=== PATIENT | female | born 1985 | race Caucasian/White ===

== ENCOUNTER 2018-04-25 16:29 | Emergency (ER) | payer OTHER ==
[~2018-04-25] VITALS: Ht 170.1 cm; Wt 69.4 kg
[~2018-04-25 16:29] MED LIST: ACCUPRIL20 MG PO; AMOXICILLIN500 MG PO; AMOXIL400 MG/5 M PO; ARMOUR THYROID60 MG PO; ATARAX25 MG PO; ATIVAN1 MG PO; AUGMENTIN 875 M1 TAB PO; Amphetamine Sal20 MG PO; BACTRIM DS 8001 TA1 PO; CATAFLAM50 MG PO; CIPROFLOXACIN500 MG PO; CLEOCIN150 MG PO; CLINDAMYCIN HC300 MG PO; DIFLUCAN150 MG PO; EFFEXOR XR75 M1 PO; FLAGYL500 MG PO; FLEXERIL5 MG PO; HYDROCHLOROTHIAZIDE PO; HYDROCODONE BIT1 T11 PO; IMITREX PO; KENALOG0.1% TP; LABETALOL100 MG PO; LISINOPRIL/HCTZ1 TA4 PO; LISINOPRIL/HCTZ1 TA5 PO; LISINOPRIL10 MG PO; LOPRESSOR50 MG PO; MACROBID100 M1 PO; MIXED AMPHETAMI20 M1 PO; MOTRIN800 MG PO; MULTIPLE VITAMI1 CAP PO; NORVASC10 MG PO; PEN-VEE K500 MG PO; PEN-VK500 MG PO; PENICILLIN VK500 MG PO; PIROXICAN10 MG PO; PREDNICOT20 MG PO; PYRIDIUM100 MG PO; PYRIDIUM200 MG PO; ROBAXIN750 MG PO; TESSALON PERLE200 MG PO; TRAMADOL HCL50 MG PO; TRIMOX500 MG PO; TYLENOL W/CODEI1 TA2 PO; ULTRAM50 MG PO; VALTREX500 MG PO; VICODIN 5/500 505 MG PO; VISTARIL50 MG PO; Vicodin 5/500 505 MG PO; ZANTAC150 MG PO; ZESTRIL,PRINIVI20 MG PO; ZITHROMAX Z PA250 MG PO; ZOFRAN ODT4 MG SL; ZOFRAN4 MG PO; Zestril,Prinivil5 MG PO; Zofran4 MG PO
[2018-04-25 16:32] VITALS: BP 138/92
[2018-04-25] MEDS ORDERED: EFFEXOR XR75 M1 PO ×2 (17:37→17:59)
[2018-04-25 18:10] LABS: BASO % 0.3 % (0.0-1.0); EOS # 0.1 10*3/uL (0.0-0.4); EOS % 1.6 % (1.0-4.0); HEMATOCRIT 38.7 % (37.0-47.0); HEMOGLOBIN 13.4 g/dl (12.0-16.0); LYMPH % 22.6 % (27.0-41.0); MEAN CELL VOLUME 90.6 fl (81.0-99.0); MEAN CORPUSCULAR HGB 31.4 pg (27.0-31.0); MEAN CORPUSCULAR HGB CONC 34.6 g/dl (33.0-37.0); MEAN PLATELET VOLUME 10.8 fl (9.6-12.3); MONO # 0.9 10*3/uL (0.1-1.0); NEUT # 5.7 10*3/uL (2.3-7.9); NEUT % 65.3 % (47.0-73.0); PLATELET COUNT AUTOMATED 259 10*3/uL (130-400); RED BLOOD COUNT 4.27 10*6/uL (4.10-5.10); RED CELL DISTRI WIDTH 12.4 % (0-14.5); WHITE BLOOD COUNT 8.8 10*3/uL (4.8-10.8)
[2018-04-25 18:13] LABS: ALBUMIN 4.2 gm/dl (3.1-4.5); ALKALINE PHOSPHATASE 52 U/L (45-117); BUN 18 mg/dl (7-24); CHLORIDE 109 mmol/L (98-107); CREATININE 0.74 mg/dL (0.55-1.02); LIPASE 77 U/L (73-393); POTASSIUM 3.8 mmol/L (3.5-5.1); SGOT/AST 34 IU/L (3-35); SGPT/ALT 51 U/L (12-78); SODIUM 143 mmol/L (136-145); TOTAL PROTEIN 7.5 gm/dL (6.4-8.2)
== END 2018-04-25 19:04 | disposition home or self-care (01) ==
LOC: ED 16:29
PROVIDERS: Physician Assistant
DX: R10.9 Unspecified abdominal pain (principal); Z76.0 Encounter for issue of repeat prescription; Z98.890 Other specified postprocedural states; Z79.899 Other long term (current) drug therapy

== ENCOUNTER 2018-05-14 10:09 | Emergency (ER) | payer OTHER ==
[~2018-05-14] VITALS: Ht 170.1 cm; Wt 68.0 kg
[2018-05-14 10:12] VITALS: BP 119/77
[2018-05-14] MEDS ORDERED: EFFEXOR XR150 M1 PO (10:35)
[2018-05-14] MEDS ORDERED: ZOFRAN4 MG PO (10:35)
[2018-05-14] MEDS ORDERED: ZESTRIL20 MG PO (10:35)
[2018-05-14 10:45] LABS: BILIRUBIN NEGATIVE (NEGATIVE); BLOOD NEGATIVE (NEGATIVE); CLARITY CLOUDY (CLEAR); COLOR YELLOW (YELLOW); GLUCOSE NEGATIVE (NEGATIVE); KETONE NEGATIVE (NEGATIVE); LEUKO ESTERASE NEGATIVE (NEGATIVE); NITRITE NEGATIVE (NEGATIVE); SPECIFIC GRAVITY >= 1.030 (1.005-1.030); UROBILINOGEN 0.2 E.U./dl (0.2-1.0)
[2018-05-14 10:59] LABS: BACTERIA 3+; EPITHELIAL CELLS 20-30
[2018-05-14] MEDS ORDERED: SEPTDS PO (11:09)
== END 2018-05-14 11:13 | disposition home or self-care (01) ==
LOC: ED 10:09
PROVIDERS: Nurse Practitioner Family
DX: R30.0 Dysuria (principal); Z76.0 Encounter for issue of repeat prescription; Z98.890 Other specified postprocedural states; Z79.899 Other long term (current) drug therapy; Z88.2 Allergy status to sulfonamides

== ENCOUNTER → 2018-05-22 | Outpatient (CLI) | payer OTHER ==
[~2018-05-22] MED LIST changes: +ATARAX,VISTARIL50 MG PO; +EFFEXOR XR150 M1 PO; +HYDR25T PO; +PROTONIX40 MG PO; +SEPTDS PO; +ZESTRIL20 MG PO; +ZOFRAN 4 MG ED2 TAB PO
[2018-05-22 14:30] LABS: BILIRUBIN NEGATIVE (NEGATIVE); BLOOD NEGATIVE (NEGATIVE); CLARITY SL CLOUDY (CLEAR); COLOR YELLOW (YELLOW); GLUCOSE NEGATIVE (NEGATIVE); KETONE NEGATIVE (NEGATIVE); LEUKO ESTERASE NEGATIVE (NEGATIVE); NITRITE NEGATIVE (NEGATIVE); UROBILINOGEN 0.2 E.U./dl (0.2-1.0)
[2018-05-22 14:31] LABS: BASO % 0.4 % (0.0-1.0); EOS # 0.1 10*3/uL (0.0-0.4); EOS % 1.7 % (1.0-4.0); HEMOGLOBIN 11.9 g/dl (12.0-16.0); LYMPH # 1.5 10*3/uL (1.3-4.4); LYMPH % 32.8 % (27.0-41.0); MEAN CORPUSCULAR HGB 31.1 pg (27.0-31.0); MEAN CORPUSCULAR HGB CONC 33.1 g/dl (33.0-37.0); MEAN PLATELET VOLUME 10.8 fl (9.6-12.3); MONO # 0.5 10*3/uL (0.1-1.0); NEUT # 2.5 10*3/uL (2.3-7.9); NEUT % 54.9 % (47.0-73.0); PLATELET COUNT AUTOMATED 234 10*3/uL (130-400); RED BLOOD COUNT 3.83 10*6/uL (4.10-5.10); RED CELL DISTRI WIDTH 13.2 % (0-14.5); WHITE BLOOD COUNT 4.6 10*3/uL (4.8-10.8)
[2018-05-22 14:56] LABS: ALBUMIN 3.7 gm/dl (3.1-4.5); ALKALINE PHOSPHATASE 49 U/L (45-117); BUN 12 mg/dl (7-24); CHLORIDE 110 mmol/L (98-107); CHOLESTEROL 148 mg/dL (<200); CREATININE 0.62 mg/dL (0.55-1.02); HDL CHOLESTEROL 56 mg/dl (40-60); LDL CHOLESTEROL 77 mg/dL (9-159); POTASSIUM 3.8 mmol/L (3.5-5.1); SGOT/AST 28 IU/L (3-35); SGPT/ALT 37 U/L (12-78); SODIUM 143 mmol/L (136-145); TOTAL PROTEIN 7.2 gm/dL (6.4-8.2); TRIGLYCERIDES 74 mg/dl (<150); VLDL CHOLESTEROL 15 mg/dL (6-40)
[2018-05-22 15:04] LABS: BACTERIA 1+; EPITHELIAL CELLS 15-20; MUCOUS 1+
[2018-05-22 15:49] LABS: VITAMIN D, 25-HYDROXY 26.9 ng/mL (30-100)
== END | disposition home or self-care (01) ==
LOC: RESCLI 03:17 → LAB 03:17 → RESCLI 11:00
PROVIDERS: Student in an Organized Health Care Education/Training Program
DX: R76.8 Other specified abnormal immunological findings in serum (principal); I10 Essential (primary) hypertension; Z76.89 Persons encountering health services in other specified circumstances

== ENCOUNTER → 2018-06-20 | Outpatient (CLI) | payer OTHER ==
[2018-06-20 17:07] LABS: ALBUMIN 4.2 gm/dl (3.1-4.5); ALKALINE PHOSPHATASE 56 U/L (45-117); BUN 11 mg/dl (7-24); CHLORIDE 100 mmol/L (98-107); CREATININE 0.79 mg/dL (0.55-1.02); POTASSIUM 4.2 mmol/L (3.5-5.1); SGOT/AST 35 IU/L (3-35); SGPT/ALT 43 U/L (12-78); SODIUM 134 mmol/L (136-145); TOTAL PROTEIN 8.3 gm/dL (6.4-8.2)
[2018-06-21 06:08] LABS: HEPATITIS B SURFACE AB 006395 Reactive (.)
[2018-06-21 08:11] LABS: HIV 1+2 AB + HIV1 P24 AG Non Reactive (Non Reactive); RHEUMATOID ARTHRITIS FACTOR 36.3 IU/mL (0.0-13.9)
[2018-06-22 21:03] LABS: HCV LOG10 5.933 (.); HEPATITIS C QNT 858000 IU/mL (.)
== END | disposition home or self-care (01) ==
LOC: RESCLI 02:02
PROVIDERS: Internal Medicine
DX: I10 Essential (primary) hypertension (principal); R76.8 Other specified abnormal immunological findings in serum; F32.9 Major depressive disorder, single episode, unspecified; R30.0 Dysuria; F14.90 Cocaine use, unspecified, uncomplicated; K21.9 Gastro-esophageal reflux disease without esophagitis; F11.29 Opioid dependence with unspecified opioid-induced disorder; Z79.899 Other long term (current) drug therapy; Z88.8 Allergy status to other drugs, medicaments and biological substances

== ENCOUNTER → 2018-10-05 | Outpatient (CLI) | payer OTHER ==
[~2018-10-05] MED LIST changes: +ADDERALL 20 MG20 MG PO; +IBU800 M1 PO; +PRILOSEC20 M1 PO
== END | disposition home or self-care (01) ==
LOC: RESCLI 08:51
DX: K21.9 Gastro-esophageal reflux disease without esophagitis (principal); I10 Essential (primary) hypertension; F11.29 Opioid dependence with unspecified opioid-induced disorder; F33.41 Major depressive disorder, recurrent, in partial remission; F90.2 Attention-deficit hyperactivity disorder, combined type; B18.2 Chronic viral hepatitis C; Z79.899 Other long term (current) drug therapy

== ENCOUNTER 2018-10-18 15:43 | Inpatient (IN) | payer OTHER ==
[~2018-10-18] VITALS: Ht 172.7 cm; Wt 68.1 kg
--- NOTE | ~2018-10-18 | EKG ---
[place], [place] ELECTROCARDIOGRAM REPORT NAME: KAVITHA HALL UNIT #: [id number] ROOM: 426 DOCTOR: BRYCE DRAFT REPORT BIRTHDATE: [birth year] [facility] Test Date: 2018-10-18 Test Time: 16:13:47 Pat Name: KAVITHA HALL Department: ER Room: 426 Gender: F Plastics Engineer: EKG.[place] : 1985 Requested By: CHRISTIAN BENDER DNP Order Number: [id number] Reading MD: Jeanette Hensley MD Measurements Intervals [place] Rate: 58 P: 62 OK: 158 QRS: 76 QRSD: 93 T: 63 QT: 403 QTc: 396 Interpretive Statements Sinus rhythm Normal ECG Baseline wander in lead(s) I,aVR,V1,V2,V3,V4,V5,V6 Compared to ECG 06/25/2018 22:35:23 No significant changes Electronically Signed On 10-24-2018 7:17:25 PST by Jeanette Hensley MD CM:EKGRPT:ELECTROCARDIOGRAM REPORT [id number] CHRISTIAN WU DRAFT REPORT CHRISTIAN BENDER DNP
[~2018-10-18 15:43] MED LIST changes: -ADDERALL 20 MG20 MG PO; -IBU800 M1 PO; -PRILOSEC20 M1 PO
[2018-10-18 15:45] VITALS: BP 121/59
[2018-10-18 16:34] LABS: BASO % 0.4 % (0.0-1.0); EOS % 0.5 % (1.0-4.0); HEMATOCRIT 35.4 % (37.0-47.0); HEMOGLOBIN 11.6 g/dl (12.0-16.0); LYMPH # 1.4 10*3/uL (1.3-4.4); LYMPH % 23.9 % (27.0-41.0); MEAN CELL VOLUME 94.7 fl (81.0-99.0); MEAN CORPUSCULAR HGB CONC 32.8 g/dl (33.0-37.0); MEAN PLATELET VOLUME 10.7 fl (9.6-12.3); MONO # 0.4 10*3/uL (0.1-1.0); MONO % 7.4 % (3.0-9.0); NEUT # 3.8 10*3/uL (2.3-7.9); NEUT % 67.6 % (47.0-73.0); PLATELET COUNT AUTOMATED 222 10*3/uL (130-400); RED BLOOD COUNT 3.74 10*6/uL (4.10-5.10); RED CELL DISTRI WIDTH 13.7 % (0-14.5); WHITE BLOOD COUNT 5.7 10*3/uL (4.8-10.8)
[2018-10-18 16:48] LABS: ACT PARTIAL THROMBO TIME 22.1 SECONDS (20.8-31.5)
[2018-10-18 16:49] LABS: ALBUMIN 3.1 gm/dl (3.1-4.5); ALKALINE PHOSPHATASE 38 U/L (45-117); BUN 26 mg/dl (7-24); CHLORIDE 112 mmol/L (98-107); CREATININE 0.86 mg/dL (0.55-1.02); LIPASE 99 U/L (73-393); POTASSIUM 4.3 mmol/L (3.5-5.1); SGOT/AST 25 IU/L (3-35); SGPT/ALT 36 U/L (12-78); SODIUM 144 mmol/L (136-145); TOTAL PROTEIN 6.7 gm/dL (6.4-8.2)
[2018-10-18 16:50] LABS: TROPONIN I < 0.015 ng/ml (<0.045)
[2018-10-18 17:03] LABS: BILIRUBIN NEGATIVE (NEGATIVE); BLOOD 1+ (NEGATIVE); CLARITY CLOUDY (CLEAR); COLOR YELLOW (YELLOW); GLUCOSE NEGATIVE (NEGATIVE); KETONE 1+ (NEGATIVE); LEUKO ESTERASE 1+ (NEGATIVE); NITRITE NEGATIVE (NEGATIVE); PH 5.5 (5.0-9.0); SPECIFIC GRAVITY >= 1.030 (1.005-1.030); UROBILINOGEN 0.2 E.U./dl (0.2-1.0)
[2018-10-18 17:11] LABS: BACTERIA 3+; EPITHELIAL CELLS TNTC; WBC TNTC wbc/hpf (0-5)
[2018-10-18 18:30] VITALS: BP 114/59
[2018-10-18 18:45] VITALS: BP 127/62
[2018-10-18] MEDS ORDERED: PRILOSEC20 M1 PO (19:18)
[2018-10-18] MEDS ORDERED: IBU800 M1 PO (19:18)
[2018-10-18] MEDS ORDERED: ADDERALL 20 MG20 MG PO (19:19)
[2018-10-18 20:00] VITALS: BP 133/81
[2018-10-19] VITALS: BP 139/83
[2018-10-19 08:00] VITALS: BP 146/71
[2018-10-19 08:37] LABS: BASO % 0.4 % (0.0-1.0); EOS # 0.1 10*3/uL (0.0-0.4); EOS % 1.4 % (1.0-4.0); HEMATOCRIT 34.5 % (37.0-47.0); HEMOGLOBIN 11.1 g/dl (12.0-16.0); LYMPH # 2.5 10*3/uL (1.3-4.4); MEAN CELL VOLUME 95.3 fl (81.0-99.0); MEAN CORPUSCULAR HGB 30.7 pg (27.0-31.0); MEAN CORPUSCULAR HGB CONC 32.2 g/dl (33.0-37.0); MEAN PLATELET VOLUME 10.7 fl (9.6-12.3); MONO # 0.4 10*3/uL (0.1-1.0); MONO % 8.3 % (3.0-9.0); NEUT # 1.8 10*3/uL (2.3-7.9); NEUT % 37.7 % (47.0-73.0); PLATELET COUNT AUTOMATED 175 10*3/uL (130-400); RED BLOOD COUNT 3.62 10*6/uL (4.10-5.10); RED CELL DISTRI WIDTH 13.6 % (0-14.5); WHITE BLOOD COUNT 4.8 10*3/uL (4.8-10.8)
[2018-10-19 09:01] LABS: BUN 20 mg/dl (7-24); CHLORIDE 111 mmol/L (98-107); CHOLESTEROL 120 mg/dL (<200); CREATININE 0.64 mg/dL (0.55-1.02); FREE T4 0.93 ng/dl (0.76-1.46); HDL CHOLESTEROL 36 mg/dl (40-60); LDL CHOLESTEROL 69 mg/dL (9-159); PHOSPHOROUS 2.6 mg/dL (2.5-4.9); POTASSIUM 3.9 mmol/L (3.5-5.1); SODIUM 143 mmol/L (136-145); TRIGLYCERIDES 73 mg/dl (<150); VLDL CHOLESTEROL 15 mg/dL (6-40)
[2018-10-19 09:06] LABS: THYROID STIM HORMONE (HS) 0.208 uIU/ml (0.358-4.75)
[2018-10-19 09:54] LABS: VITAMIN D, 25-HYDROXY 28.4 ng/mL (30-100)
[2018-10-19 12:00] VITALS: BP 151/63
[2018-10-19 16:00] VITALS: BP 116/77
[2018-10-19 20:00] VITALS: BP 132/79
== END 2018-10-19 21:32 | disposition left against medical advice (07) | DRG 312 ==
LOC: ED 15:43 → EDHOLD 18:17 → 4E 18:17
PROVIDERS: Internal Medicine; Nurse Practitioner Family
DX: R55 Syncope and collapse (principal); N30.01 Acute cystitis with hematuria; E86.0 Dehydration; B37.3 Candidiasis of vulva and vagina; R73.9 Hyperglycemia, unspecified; E87.8 Other disorders of electrolyte and fluid balance, not elsewhere classified; I10 Essential (primary) hypertension; F32.9 Major depressive disorder, single episode, unspecified; F14.90 Cocaine use, unspecified, uncomplicated; D64.9 Anemia, unspecified; K21.9 Gastro-esophageal reflux disease without esophagitis; N20.0 Calculus of kidney; Z71.6 Tobacco abuse counseling; F17.210 Nicotine dependence, cigarettes, uncomplicated; G43.909 Migraine, unspecified, not intractable, without status migrainosus; Z53.21 Procedure and treatment not carried out due to patient leaving prior to being seen by health care provider; Z91.81 History of falling; Z98.891 History of uterine scar from previous surgery; Z82.49 Family history of ischemic heart disease and other diseases of the circulatory system; Z83.3 Family history of diabetes mellitus; Z79.899 Other long term (current) drug therapy

== ENCOUNTER → 2018-11-14 | Outpatient (CLI) | payer OTHER ==
[~2018-11-14] MED LIST changes: +ADDERALL 20 MG20 MG PO; +CYCLOBENZAPRINE10 MG PO; +IBU800 M1 PO; +PRILOSEC20 M1 PO
[2018-11-14 16:32] LABS: URINE AMPHETAMINES < 1000 (1000ng/ml); URINE BARBITURATES < 200 (200ng/ml); URINE BENZODIAZEPINES < 200 (200ng/ml); URINE CANNABINOIDS (THC) < 50 (50ng/ml); URINE COCAINE < 300 (300ng/ml); URINE METHADONE < 300 (300ng/ml); URINE OPIATES < 300 (300ng/ml)
[2018-11-14 16:34] LABS: URINE PHENCYCLIDINE < 25 (25ng/ml)
== END | disposition home or self-care (01) ==
LOC: RESCLI 02:30
PROVIDERS: Student in an Organized Health Care Education/Training Program
DX: F33.41 Major depressive disorder, recurrent, in partial remission (principal); I10 Essential (primary) hypertension; F90.2 Attention-deficit hyperactivity disorder, combined type; K21.9 Gastro-esophageal reflux disease without esophagitis; Z79.899 Other long term (current) drug therapy; Z88.8 Allergy status to other drugs, medicaments and biological substances

== ENCOUNTER → 2018-12-14 | Outpatient (CLI) | payer OTHER ==
[~2018-12-14] MED LIST changes: -ADDERALL 20 MG20 MG PO; +ADDERALL XR20 MG PO; +ANTIFUNGAL CREA14 GM T; +MIRTAZAPINE15 M2 PO; +OLANZAPINE5 MG PO; +PROZAC10 MG PO; +TIZANIDINE HCL4 MG PO; +VALACYCLOVIR H500 MG PO; +ZESTRIL40 MG PO
== END | disposition home or self-care (01) ==
LOC: RESCLI 09:56
DX: K21.9 Gastro-esophageal reflux disease without esophagitis (principal); I10 Essential (primary) hypertension; F11.29 Opioid dependence with unspecified opioid-induced disorder; F33.41 Major depressive disorder, recurrent, in partial remission; F90.2 Attention-deficit hyperactivity disorder, combined type; B18.2 Chronic viral hepatitis C; Z79.899 Other long term (current) drug therapy; Z87.891 Personal history of nicotine dependence

== ENCOUNTER 2018-12-16 21:32 | Emergency (ER) | payer OTHER ==
[~2018-12-16] VITALS: Ht 170.1 cm; Wt 64.4 kg
[~2018-12-16 21:32] MED LIST changes: +ADDERALL 20 MG20 MG PO; -ADDERALL XR20 MG PO; -ANTIFUNGAL CREA14 GM T; -CYCLOBENZAPRINE10 MG PO; -MIRTAZAPINE15 M2 PO; -OLANZAPINE5 MG PO; -PROZAC10 MG PO; -TIZANIDINE HCL4 MG PO; -VALACYCLOVIR H500 MG PO; -ZESTRIL40 MG PO
[2018-12-16 21:33] VITALS: BP 116/75
[2018-12-16 22:02] LABS: BASO % 0.2 % (0.0-1.0); EOS # 0.1 10*3/uL (0.0-0.4); EOS % 0.3 % (1.0-4.0); HEMATOCRIT 42.5 % (37.0-47.0); HEMOGLOBIN 14.7 g/dl (12.0-16.0); LYMPH # 2.7 10*3/uL (1.3-4.4); LYMPH % 18.9 % (27.0-41.0); MEAN CELL VOLUME 90.4 fl (81.0-99.0); MEAN CORPUSCULAR HGB 31.3 pg (27.0-31.0); MEAN CORPUSCULAR HGB CONC 34.6 g/dl (33.0-37.0); MEAN PLATELET VOLUME 10.3 fl (9.6-12.3); MONO # 1.1 10*3/uL (0.1-1.0); MONO % 7.7 % (3.0-9.0); NEUT # 10.5 10*3/uL (2.3-7.9); NEUT % 72.4 % (47.0-73.0); PLATELET COUNT AUTOMATED 335 10*3/uL (130-400); RED CELL DISTRI WIDTH 12.8 % (0-14.5); WHITE BLOOD COUNT 14.5 10*3/uL (4.8-10.8)
[2018-12-16 22:21] LABS: ALBUMIN 4.3 gm/dl (3.1-4.5); ALKALINE PHOSPHATASE 54 U/L (45-117); BUN 15 mg/dl (7-24); CHLORIDE 101 mmol/L (98-107); CREATININE 1.04 mg/dL (0.55-1.02); LIPASE 49 U/L (73-393); POTASSIUM 3.3 mmol/L (3.5-5.1); SGOT/AST 24 IU/L (3-35); SGPT/ALT 40 U/L (12-78); SODIUM 137 mmol/L (136-145); TOTAL PROTEIN 8.5 gm/dL (6.4-8.2)
[2018-12-16] MEDS ORDERED: CYCLOBENZAPRINE10 MG PO (23:15)
== END 2018-12-16 23:44 | disposition home or self-care (01) ==
LOC: ED 21:32
PROVIDERS: Student in an Organized Health Care Education/Training Program
DX: R10.9 Unspecified abdominal pain (principal); R42 Dizziness and giddiness; R11.0 Nausea; K21.9 Gastro-esophageal reflux disease without esophagitis; G43.909 Migraine, unspecified, not intractable, without status migrainosus; I10 Essential (primary) hypertension; F17.200 Nicotine dependence, unspecified, uncomplicated; Z76.5 Malingerer [conscious simulation]; Z79.899 Other long term (current) drug therapy

== ENCOUNTER → 2018-12-25 | Outpatient (CLI) | payer OTHER ==
[~2018-12-25] MED LIST changes: -ADDERALL 20 MG20 MG PO; +ADDERALL XR20 MG PO; +ANTIFUNGAL CREA14 GM T; +CYCLOBENZAPRINE10 MG PO; +MIRTAZAPINE15 M2 PO; +OLANZAPINE5 MG PO; +PROZAC10 MG PO; +TIZANIDINE HCL4 MG PO; +VALACYCLOVIR H500 MG PO; +ZESTRIL40 MG PO
[2018-12-25 16:09] LABS: BASO % 0.2 % (0.0-1.0); EOS # 0.1 10*3/uL (0.0-0.4); EOS % 0.6 % (1.0-4.0); HEMATOCRIT 42.2 % (37.0-47.0); HEMOGLOBIN 14.6 g/dl (12.0-16.0); LYMPH # 2.3 10*3/uL (1.3-4.4); LYMPH % 28.4 % (27.0-41.0); MEAN CELL VOLUME 91.3 fl (81.0-99.0); MEAN CORPUSCULAR HGB 31.6 pg (27.0-31.0); MEAN CORPUSCULAR HGB CONC 34.6 g/dl (33.0-37.0); MEAN PLATELET VOLUME 10.1 fl (9.6-12.3); MONO # 0.4 10*3/uL (0.1-1.0); MONO % 5.3 % (3.0-9.0); NEUT # 5.3 10*3/uL (2.3-7.9); PLATELET COUNT AUTOMATED 318 10*3/uL (130-400); RED BLOOD COUNT 4.62 10*6/uL (4.10-5.10); RED CELL DISTRI WIDTH 12.7 % (0-14.5); WHITE BLOOD COUNT 8.1 10*3/uL (4.8-10.8)
[2018-12-25 16:17] LABS: INTERNATIONAL NORM RATIO 0.9 (2.0-3.5)
[2018-12-25 16:28] LABS: ALBUMIN 4.3 gm/dl (3.1-4.5); ALKALINE PHOSPHATASE 55 U/L (45-117); BUN 11 mg/dl (7-24); CHLORIDE 107 mmol/L (98-107); CREATININE 0.67 mg/dL (0.55-1.02); POTASSIUM 3.9 mmol/L (3.5-5.1); SGOT/AST 27 IU/L (3-35); SGPT/ALT 40 U/L (12-78); SODIUM 140 mmol/L (136-145); TOTAL PROTEIN 8.6 gm/dL (6.4-8.2)
[2018-12-25 16:43] LABS: URINE AMPHETAMINES < 1000 (1000ng/ml); URINE BARBITURATES < 200 (200ng/ml); URINE BENZODIAZEPINES < 200 (200ng/ml); URINE CANNABINOIDS (THC) < 50 (50ng/ml); URINE COCAINE < 300 (300ng/ml); URINE METHADONE < 300 (300ng/ml); URINE OPIATES < 300 (300ng/ml)
[2018-12-25 16:45] LABS: URINE PHENCYCLIDINE < 25 (25ng/ml)
[2018-12-26 07:07] LABS: HEP B CORE AB TOTAL 006718 Negative (Negative); HEPATITIS B SURFACE AB 006395 Reactive (.); HEPATITIS B SURFACE AG Negative (Negative); HEPATITIS C VIRUS ANTIBODY >11.0 s/co (0.0-0.9)
[2018-12-26 22:05] LABS: HCV LOG10 6.079 (.); HEPATITIS C QNT 1200000 IU/mL (.)
== END | disposition home or self-care (01) ==
LOC: LAB 15:22
PROVIDERS: Internal Medicine
DX: B17.10 Acute hepatitis C without hepatic coma (principal); B18.2 Chronic viral hepatitis C; F11.20 Opioid dependence, uncomplicated; F11.29 Opioid dependence with unspecified opioid-induced disorder

== ENCOUNTER → 2019-01-11 | Outpatient (CLI) | payer OTHER | END | disposition home or self-care (01) | LOC: RESCLI 01:59 | DX: K21.9 Gastro-esophageal reflux disease without esophagitis (principal); F90.2 Attention-deficit hyperactivity disorder, combined type; F33.41 Major depressive disorder, recurrent, in partial remission; I10 Essential (primary) hypertension; B18.2 Chronic viral hepatitis C; F11.29 Opioid dependence with unspecified opioid-induced disorder; Z79.899 Other long term (current) drug therapy; Z88.8 Allergy status to other drugs, medicaments and biological substances ==

== ENCOUNTER → 2019-03-20 | Outpatient (CLI) | payer OTHER | END | disposition home or self-care (01) | LOC: RESCLI 12:57 | DX: F90.2 Attention-deficit hyperactivity disorder, combined type (principal); F33.41 Major depressive disorder, recurrent, in partial remission; K21.9 Gastro-esophageal reflux disease without esophagitis; I10 Essential (primary) hypertension; B18.2 Chronic viral hepatitis C; D64.9 Anemia, unspecified ==

== ENCOUNTER → 2019-04-16 | Outpatient (CLI) | payer OTHER | END | disposition home or self-care (01) | LOC: RESCLI 14:20 | DX: N39.0 Urinary tract infection, site not specified (principal); R30.0 Dysuria; F90.2 Attention-deficit hyperactivity disorder, combined type; I10 Essential (primary) hypertension; B00.9 Herpesviral infection, unspecified; B37.3 Candidiasis of vulva and vagina; B18.2 Chronic viral hepatitis C; F32.9 Major depressive disorder, single episode, unspecified ==

== ENCOUNTER 2019-09-23 15:27 | Emergency (ER) | payer OTHER ==
[~2019-09-23] VITALS: Wt 59.0 kg
[2019-09-23 15:29] VITALS: BP 167/111
[2019-09-23 16:50] LABS: BASO % 0.5 % (0.0-1.0); EOS # 0.2 10*3/uL (0.0-0.4); EOS % 3.3 % (1.0-4.0); HEMATOCRIT 37.4 % (37.0-47.0); HEMOGLOBIN 11.9 g/dl (12.0-16.0); LYMPH # 1.5 10*3/uL (1.3-4.4); LYMPH % 24.4 % (27.0-41.0); MEAN CELL VOLUME 94.4 fl (81.0-99.0); MEAN CORPUSCULAR HGB 30.1 pg (27.0-31.0); MEAN CORPUSCULAR HGB CONC 31.8 g/dl (33.0-37.0); MEAN PLATELET VOLUME 10.1 fl (9.6-12.3); MONO # 0.7 10*3/uL (0.1-1.0); MONO % 10.8 % (3.0-9.0); NEUT # 3.9 10*3/uL (2.3-7.9); PLATELET COUNT AUTOMATED 308 10*3/uL (130-400); RED BLOOD COUNT 3.96 10*6/uL (4.10-5.10); RED CELL DISTRI WIDTH 12.7 % (0-14.5); WHITE BLOOD COUNT 6.3 10*3/uL (4.8-10.8)
[2019-09-23 17:06] LABS: ALBUMIN 3.7 gm/dl (3.1-4.5); ALKALINE PHOSPHATASE 47 U/L (45-117); BUN 18 mg/dl (7-24); CHLORIDE 103 mmol/L (98-107); CREATININE 0.61 mg/dL (0.55-1.02); POTASSIUM 3.3 mmol/L (3.5-5.1); SGOT/AST 27 IU/L (3-35); SGPT/ALT 38 U/L (12-78); SODIUM 138 mmol/L (136-145); TOTAL PROTEIN 7.4 gm/dL (6.4-8.2)
[2019-09-23] MEDS ORDERED: CEPHALEXIN500 M1 PO (18:20)
[2019-09-23] MEDS ORDERED: MEDROL DOSEPAK4 MG PO (18:20)
[2019-09-23] MEDS ORDERED: SEPTDS PO (18:20)
== END 2019-09-23 19:02 | disposition home or self-care (01) ==
LOC: ED 15:27
PROVIDERS: Physician Assistant
DX: L02.01 Cutaneous abscess of face (principal); M54.12 Radiculopathy, cervical region; K21.9 Gastro-esophageal reflux disease without esophagitis; I10 Essential (primary) hypertension; G43.909 Migraine, unspecified, not intractable, without status migrainosus; F17.200 Nicotine dependence, unspecified, uncomplicated; Z79.899 Other long term (current) drug therapy; Z86.14 Personal history of Methicillin resistant Staphylococcus aureus infection

== ENCOUNTER 2019-12-16 20:52 | Emergency (ER) | payer OTHER ==
[~2019-12-16] VITALS: Ht 172.7 cm; Wt 60.3 kg
[~2019-12-16 20:52] MED LIST changes: +CEPHALEXIN500 M1 PO; +MEDROL DOSEPAK4 MG PO
[2019-12-16 21:12] VITALS: BP 144/105
[2019-12-16] MEDS ORDERED: AUGMENTIN 875-875 MG PO (22:16)
== END 2019-12-16 22:17 | disposition home or self-care (01) ==
LOC: ED 20:52
DX: S41.151A Open bite of right upper arm, initial encounter (principal); K21.9 Gastro-esophageal reflux disease without esophagitis; I10 Essential (primary) hypertension; G43.909 Migraine, unspecified, not intractable, without status migrainosus; F17.200 Nicotine dependence, unspecified, uncomplicated; Z79.899 Other long term (current) drug therapy; W54.0XXA Bitten by dog, initial encounter; Y93.89 Activity, other specified; Y92.89 Other specified places as the place of occurrence of the external cause; Y99.8 Other external cause status

== ENCOUNTER 2020-05-13 14:15 | Inpatient (IN) | payer OTHER ==
[~2020-05-13] VITALS: Ht 165.1 cm; Wt 60.1 kg
[~2020-05-13 14:15] MED LIST changes: +AUGMENTIN 875-875 MG PO
[2020-05-13 14:42] VITALS: BP 139/77
[2020-05-13 15:52] LABS: BASO % 0.3 % (0.0-1.0); EOS # 0.2 10*3/uL (0.0-0.4); HEMATOCRIT 37.5 % (37.0-47.0); LYMPH # 1.5 10*3/uL (1.3-4.4); MEAN CELL VOLUME 93.3 fl (81.0-99.0); MEAN CORPUSCULAR HGB 30.8 pg (27.0-31.0); MEAN CORPUSCULAR HGB CONC 33.1 g/dl (33.0-37.0); MEAN PLATELET VOLUME 9.4 fl (9.6-12.3); MONO # 0.8 10*3/uL (0.1-1.0); MONO % 10.2 % (3.0-9.0); NEUT # 4.8 10*3/uL (2.3-7.9); PLATELET COUNT AUTOMATED 301 10*3/uL (130-400); RED BLOOD COUNT 4.02 10*6/uL (4.10-5.10); RED CELL DISTRI WIDTH 12.3 % (0-14.5); WHITE BLOOD COUNT 7.3 10*3/uL (4.8-10.8)
[2020-05-13 16:07] LABS: ALBUMIN 3.2 gm/dl (3.1-4.5); ALKALINE PHOSPHATASE 60 U/L (45-117); BUN 24 mg/dl (7-24); CHLORIDE 101 mmol/L (98-107); CREATININE 0.59 mg/dL (0.55-1.02); POTASSIUM 3.9 mmol/L (3.5-5.1); SGOT/AST 29 IU/L (3-35); SGPT/ALT 40 U/L (12-78); SODIUM 137 mmol/L (136-145); TOTAL PROTEIN 7.6 gm/dL (6.4-8.2)
[2020-05-13 19:12] VITALS: BP 119/83
[2020-05-13 20:00] VITALS: BP 137/81
--- NOTE | 2020-05-13 20:00 | NUR ---
Time: 1999 A 35 year old FEMALE admitted to 4E under services of PHILLIP RIVERA DO, Pt. arrived via stretcher from ER. Chief complaint: PAIN. ERICA TAVARES
[2020-05-13] MEDS ORDERED: DILANTIN100 MG PO (22:11)
[2020-05-13] MEDS ORDERED: MULTIVITAMINS1 EAC5 PO (22:12)
[2020-05-13] MEDS ORDERED: ZESTORETIC 20-1 EACH PO (22:12)
[2020-05-13] MEDS ORDERED: B-12500 MC1 PO (22:13)
[2020-05-13] MEDS ORDERED: VITAMIN C100 M3 PO (22:13)
--- NOTE | 2020-05-13 22:27 | NUR ---
NOTIFIED DR. ALVAREZ PATIENT MED REC IS UP TO DATE.
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
[2020-05-14] VITALS: BP 142/83
--- NOTE | 2020-05-14 | NUR ---
PATIENT SLEEPING, NO SIGNS OF DISTRESS. RESPIRATIONS EASY, NON LABORED. NORCO EFFECTIVE. WILL CONTINUE TO MONITOR.
--- NOTE | 2020-05-14 00:54 | NUR ---
PER PATIENT NORCO NOT EFFECTIVE THIS TIME AND NEEDS SOMETHING STRONGER. C/O A HEADACHE AND BACK/RIB PAIN. RATES /. MEDICATED WITH MORPHINE AT THIS TIME. WILL CHECK EFFECTIVENSS.
--- NOTE | 2020-05-14 04:26 | NUR ---
PATIENT REQUESTING SOMETHING FOR A HEADACHE. RATES 04/29. OFFERED TYLENOL. PATIENT STATES THAT WONT HELP. MEDICATED WITH NORCO AT THIS TIME. WILL CHECK EFFECTIVENESS.
[2020-05-14 05:38] LABS: BUN 19 mg/dl (7-24); CHLORIDE 107 mmol/L (98-107); CREATININE 0.56 mg/dL (0.55-1.02); POTASSIUM 4.1 mmol/L (3.5-5.1); SODIUM 137 mmol/L (136-145)
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
--- NOTE | 2020-05-14 05:57 | NUR ---
UNABLE TO OBTAIN WOUND CULTURE. PATIENT DOES NOT WANT WOUND UNPACKED NOW AND THEN AGAIN WHEN DR. RODRIGUEZ SEE HER.
[2020-05-14 06:27] LABS: BASO % 0.4 % (0.0-1.0); EOS # 0.2 10*3/uL (0.0-0.4); EOS % 3.4 % (1.0-4.0); HEMATOCRIT 34.9 % (37.0-47.0); LYMPH # 1.9 10*3/uL (1.3-4.4); LYMPH % 36.2 % (27.0-41.0); MEAN CORPUSCULAR HGB CONC 32.1 g/dl (33.0-37.0); MONO # 0.6 10*3/uL (0.1-1.0); MONO % 12.1 % (3.0-9.0); NEUT # 2.5 10*3/uL (2.3-7.9); NEUT % 47.5 % (47.0-73.0); PLATELET COUNT AUTOMATED 261 10*3/uL (130-400); RED BLOOD COUNT 3.61 10*6/uL (4.10-5.10); RED CELL DISTRI WIDTH 12.3 % (0-14.5); WHITE BLOOD COUNT 5.2 10*3/uL (4.8-10.8)
[2020-05-14 06:30] LABS: MEAN CELL VOLUME 96.7 fl (81.0-99.0)
--- NOTE | 2020-05-14 06:33 | NUR ---
NOTIFIED DR. RODRIGUEZ OF NEW CONSULT. NO NEW ORDERS RECEIVED.
[2020-05-14 07:38] LABS: VITAMIN D, 25-HYDROXY 35.8 ng/mL (30-100)
[2020-05-14 08:00] VITALS: BP 106/55
--- NOTE | 2020-05-14 08:13 | NUR ---
Dr. Ryan notified of wound care recommendations
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
--- NOTE | 2020-05-14 09:02 | NUR ---
PATIENT C/O "PAIN ALL OVER". "ESPECIALLY MY BACK AND LEFT SIDE OF RIBS". MEDICATED WITH NORCO PER PRN ORDER.
--- NOTE | 2020-05-14 10:00 | NUR ---
DAVID LU. NOTIFIED . WILL PLACE A NEW ORDER.
--- NOTE | 2020-05-14 10:54 | NUR ---
MEDICATED WITH MORPHINE SULFATE 2MG IV PER PRN ORDER. WILL CONTINUE TO MONITOR.
--- NOTE | 2020-05-14 11:54 | NUR ---
PATIENT FALLING ASLEEP WHILE NURSE TALKING TO HER. MORPHINE EFFECTIVE. WILL CONTINUE TO MONITOR.
[2020-05-14 12:00] VITALS: BP 118/54
[2020-05-14 16:00] VITALS: BP 125/69
--- NOTE | 2020-05-14 16:30 | NUR ---
PT GIVEN MORPHINE 2 MG FOR C/O GENERALIZED PAIN. WILL MONITOR FOR EFFECTIVENESS. PT RESTING IN BED AT THIS TIME. CALL LIGHT IN REACH.
--- NOTE | 2020-05-14 17:00 | NUR ---
PRN MORPHINE WAS EFFECTIVE. PT IS CURRENTLY SLEEPING WITH NO SIGNS OF DISTRESS.
--- NOTE | 2020-05-14 19:43 | NUR ---
PATIENT RESTING IN BED WITH NO S/S OF DISTRESS. NO NEEDS MADE. BED IN LOWEST POSITION, CALL LIGHT IN REACH
[2020-05-14 20:00] VITALS: BP 116/77
[2020-05-15] VITALS: BP 127/68
--- NOTE | 2020-05-15 05:20 | NUR ---
MEDICATED WITH PRN MORPHINE FOR C/O LOWER BACK PAIN RATED 8/10 ON A 0/10 PAIN SCALE. WILL MONITOR
--- NOTE | 2020-05-15 05:57 | NUR ---
PATIENT RESTING IN BED WITH EYES CLOSED. RESPS EASY AND REGULAR. MORPHINE SEEMS EFFECTIVE
--- NOTE | 2020-05-15 07:56 | NUR ---
This nurse notified Gilda CASANOVA who is caring for patient at this time that wound care orders for patients lower back needs clarified since it is in Dr. Bloom's note but nothing is put into the system.
[2020-05-15 08:00] VITALS: BP 115/71
--- NOTE | 2020-05-15 09:00 | NUR ---
case management visits with patient, she states she will return home when discharged, she will follow up with the hospital wound clinic, appointment made and date on discharge instructions, patient denies any other treatment at this time
--- NOTE | 2020-05-15 09:27 | NUR ---
PT MEDICATED WITH PRN MORPHINE FOR C/O BACK PAIN AT [facility]. PT RATES PAIN 06/29. WILL MONITOR.
--- NOTE | 2020-05-15 10:20 | NUR ---
PRN MORPHINE APPEARS EFFECTIVE. PT LYING IN BED WITH EYES CLOSED. NO S/S OF DISTRESS.
[2020-05-15 12:00] VITALS: BP 121/76
--- NOTE | 2020-05-15 13:00 | NUR ---
PT STATES SCHEDULED PERCOCET WAS EFFECTIVE.
[2020-05-15 16:00] VITALS: BP 119/76
--- NOTE | 2020-05-15 17:05 | NUR ---
PT MEDICATED WITH PRN MORPHINE FOR C/O BACK PAIN AT WOUND SITE. PT RATES PAIN 06/29. WILL MONITOR.
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
--- NOTE | 2020-05-15 19:17 | NUR ---
PATIENT LAYING IN BED TALKING ON PHONE. STATES SHE IS STILL IN SEVERE PAIN DESPITE PAIN MEDICATION. REMINDED TO NOT LEAVE THE FLOOR. VERBALIZED UNDERSTANDING. BED IN LOWEST POSITION, CALL LIGHT IN REACH
[2020-05-15 20:00] VITALS: BP 123/76
--- NOTE | 2020-05-15 21:42 | NUR ---
MEDICATED WITH PRN MORPHIN FOR C/O ALL OVER PAIN RATED 8/10 ON A 0/10 PAIN SCALE. WILL MONITOR
--- NOTE | 2020-05-15 22:41 | NUR ---
MORPHINE SOMEWHAT EFFECTIVE PER PATIENT
[2020-05-16] VITALS: BP 110/61
--- NOTE | 2020-05-16 05:32 | NUR ---
PATIENT MEDICATED WITH SCHEDULED PERCOCET PER ORDER. PATIENT STATES "I NEED THE MORPHINE. THESE TAKE TOO LONG TO GET INTO MY SYSTEM.". PATIENT INFORMED THAT THIS RN CANNOT GIVE PERCOCET AND MORPHINE AT THE SAME TIME, BUT I WILL RETURN WITH HER MORPHINE IN AN HOUR. PATIENT DID NOT RESPOND AND JUST ROLLED OVER ONTO HER RIGHT SIDE. BED IN LOWEST POSITION, CALL LIGHT IN REACH
[2020-05-16 08:00] VITALS: BP 129/61
--- NOTE | 2020-05-16 08:14 | NUR ---
MEDICATED WITH PRN IV MORPHINE FOR GENERALIZED BODY AND LOWER BACK WOUND PAIN.
--- NOTE | 2020-05-16 09:12 | NUR ---
PRN IV MORPHINE EFFECTIVE, PER PATIENT.
[2020-05-16] MEDS ORDERED: PERCOCET 5-3251 EACH PO ×2 (10:42→10:43)
[2020-05-16] MEDS ORDERED: Percocet 325 MG1 TAB PO (10:48)
--- NOTE | 2020-05-16 12:45 | NUR ---
Discharge instructions reviewed with patient/family. Patient receptive and verbalizes understanding. Follow-up care arranged. Written instructions given to patient/family. PATIENT DISCHARGED TO [facility], AMBULATORY, FOR TRANSPORT HOME WITH HER MOTHER. TIMOTHY PINO
== END 2020-05-16 12:45 | disposition home or self-care (01) | DRG 383 ==
LOC: ED 14:15 → 4E 18:08 → EDHOLD 18:08 → 4E 19:07
PROVIDERS: Internal Medicine; Physician Assistant; ADMIT Internal Medicine
DX: L03.312 Cellulitis of back [any part except buttock and flank] (principal); I10 Essential (primary) hypertension; F32.9 Major depressive disorder, single episode, unspecified; K21.9 Gastro-esophageal reflux disease without esophagitis; F17.220 Nicotine dependence, chewing tobacco, uncomplicated; F19.10 Other psychoactive substance abuse, uncomplicated; S31.000A Unspecified open wound of lower back and pelvis without penetration into retroperitoneum, initial encounter; G43.909 Migraine, unspecified, not intractable, without status migrainosus; R00.0 Tachycardia, unspecified; X58.XXXA Exposure to other specified factors, initial encounter; Y93.89 Activity, other specified; Y92.89 Other specified places as the place of occurrence of the external cause; Y99.8 Other external cause status; Z71.6 Tobacco abuse counseling; Z87.820 Personal history of traumatic brain injury; Z83.3 Family history of diabetes mellitus; Z82.49 Family history of ischemic heart disease and other diseases of the circulatory system; Z79.899 Other long term (current) drug therapy

== ENCOUNTER 2020-05-18 16:17 | Emergency (ER) | payer OTHER ==
[~2020-05-18] VITALS: Ht 170.1 cm; Wt 61.2 kg
[~2020-05-18 16:17] MED LIST changes: +B-12500 MC1 PO; +DILANTIN100 MG PO; +MULTIVITAMINS1 EAC5 PO; +PERCOCET 5-3251 EACH PO; +Percocet 325 MG1 TAB PO; +VITAMIN C100 M3 PO; +ZESTORETIC 20-1 EACH PO
[2020-05-18 16:19] VITALS: BP 139/78
[2020-05-18] MEDS ORDERED: NAPROSYN500 MG PO (17:53)
[2020-05-18] MEDS ORDERED: TYLENOL325 M1 PO (17:53)
[2020-05-18] MEDS ORDERED: POLYSPORIN OINT15 GM T (17:53)
== END 2020-05-18 18:01 | disposition home or self-care (01) ==
LOC: ED 16:17
DX: R07.81 Pleurodynia (principal); K21.9 Gastro-esophageal reflux disease without esophagitis; G43.909 Migraine, unspecified, not intractable, without status migrainosus; I10 Essential (primary) hypertension; Z79.899 Other long term (current) drug therapy

== ENCOUNTER → 2020-06-02 | Outpatient (CLI) | payer OTHER ==
[~2020-06-02] MED LIST changes: +NAPROSYN500 MG PO; +POLYSPORIN OINT15 GM T; +TYLENOL325 M1 PO
== END | disposition home or self-care (01) ==
LOC: CT 11:00
DX: S06.5X9A Traumatic subdural hemorrhage with loss of consciousness of unspecified duration, initial encounter (principal); S06.5X0A Traumatic subdural hemorrhage without loss of consciousness, initial encounter; X58.XXXA Exposure to other specified factors, initial encounter; Y93.89 Activity, other specified; Y92.89 Other specified places as the place of occurrence of the external cause; Y99.8 Other external cause status

== ENCOUNTER → 2020-12-02 | Outpatient (CLI) | payer OTHER ==
[2020-12-02 15:12] LABS: BASO % 0.8 % (0.0-1.0); EOS # 0.1 10*3/uL (0.0-0.4); EOS % 2.8 % (1.0-4.0); LYMPH # 2.1 10*3/uL (1.3-4.4); LYMPH % 41.6 % (27.0-41.0); MEAN CELL VOLUME 90.3 fl (81.0-99.0); MEAN CORPUSCULAR HGB 30.4 pg (27.0-31.0); MEAN CORPUSCULAR HGB CONC 33.6 g/dl (33.0-37.0); MEAN PLATELET VOLUME 9.8 fl (9.6-12.3); MONO # 0.5 10*3/uL (0.1-1.0); MONO % 9.9 % (3.0-9.0); NEUT # 2.3 10*3/uL (2.3-7.9); NEUT % 44.7 % (47.0-73.0); PLATELET COUNT AUTOMATED 399 10*3/uL (130-400); RED BLOOD COUNT 4.87 10*6/uL (4.10-5.10); RED CELL DISTRI WIDTH 12.8 % (0-14.5)
[2020-12-02 15:16] LABS: BILIRUBIN Negative (Negative); BLOOD 3+ (Negative); CLARITY Clear (Clear); COLOR Yellow (Yellow); GLUCOSE Negative (Negative); KETONE Negative (Negative); LEUKO ESTERASE Trace (Negative); NITRITE Negative (Negative); UROBILINOGEN 0.2 E.U./dl (0.0-1.0)
[2020-12-02 15:20] LABS: URINE AMPHETAMINES > 1000 (1000ng/ml); URINE BARBITURATES < 200 (200ng/ml); URINE BENZODIAZEPINES < 200 (200ng/ml); URINE CANNABINOIDS (THC) < 50 (50ng/ml); URINE COCAINE < 300 (300ng/ml); URINE METHADONE < 300 (300ng/ml); URINE OPIATES > 300 (300ng/ml); URINE PHENCYCLIDINE < 25 (25ng/ml)
[2020-12-02 15:23] LABS: BACTERIA 1+; EPITHELIAL CELLS 16-20; MUCOUS TRACE; RBC 0-2 rbc/hpf (0-2)
[2020-12-02 15:44] LABS: BUN 18 mg/dl (7-24); CHLORIDE 100 mmol/L (98-107); CREATININE 0.76 mg/dL (0.55-1.02); POTASSIUM 3.7 mmol/L (3.5-5.1); SGOT/AST 29 IU/L (3-35); SGPT/ALT 44 U/L (12-78); SODIUM 133 mmol/L (136-145); TOTAL PROTEIN 8.1 gm/dL (6.4-8.2)
[2020-12-02 15:53] LABS: ALKALINE PHOSPHATASE 60 U/L (45-117); B-hCG (QUALITATIVE) NEGATIVE (NEGATIVE)
[2020-12-03 09:07] LABS: HEP B CORE AB, IGM Negative (Negative); HEPATITIS B SURFACE AG Negative (Negative); PROLACTIN 8.8 ng/mL (4.8-23.3)
[2020-12-03 20:12] LABS: HEPATITIS C QUANTITATION 315000 IU/mL (.)
[2020-12-07 08:38] LABS: HEPATITIS C VIRUS ANTIBODY >11.0 s/co (0.0-0.9)
== END | disposition home or self-care (01) ==
LOC: US 13:30 → LAB 13:50
PROVIDERS: ATTEND Obstetrics & Gynecology
DX: N85.8 Other specified noninflammatory disorders of uterus (principal); N93.9 Abnormal uterine and vaginal bleeding, unspecified

== ENCOUNTER 2020-12-04 16:35 | Emergency (ER) | payer OTHER ==
[~2020-12-04] VITALS: Ht 170.1 cm; Wt 61.2 kg
[2020-12-04 16:45] VITALS: BP 134/80
[2020-12-04 17:00] LABS: BASO % 0.6 % (0.0-1.0); EOS # 0.2 10*3/uL (0.0-0.4); EOS % 2.2 % (1.0-4.0); HEMATOCRIT 42.6 % (37.0-47.0); LYMPH # 2.8 10*3/uL (1.3-4.4); LYMPH % 40.9 % (27.0-41.0); MEAN CELL VOLUME 89.1 fl (81.0-99.0); MEAN CORPUSCULAR HGB 29.9 pg (27.0-31.0); MEAN CORPUSCULAR HGB CONC 33.6 g/dl (33.0-37.0); MEAN PLATELET VOLUME 9.6 fl (9.6-12.3); MONO # 0.6 10*3/uL (0.1-1.0); MONO % 8.6 % (3.0-9.0); NEUT # 3.2 10*3/uL (2.3-7.9); NEUT % 47.6 % (47.0-73.0); PLATELET COUNT AUTOMATED 378 10*3/uL (130-400); RED BLOOD COUNT 4.78 10*6/uL (4.10-5.10); RED CELL DISTRI WIDTH 12.5 % (0-14.5); WHITE BLOOD COUNT 6.7 10*3/uL (4.8-10.8)
[2020-12-04 17:17] LABS: ALBUMIN 4.2 gm/dl (3.1-4.5); ALKALINE PHOSPHATASE 59 U/L (45-117); BUN 23 mg/dl (7-24); CHLORIDE 101 mmol/L (98-107); CREATININE 0.76 mg/dL (0.55-1.02); POTASSIUM 3.3 mmol/L (3.5-5.1); SGOT/AST 31 IU/L (3-35); SGPT/ALT 46 U/L (12-78); SODIUM 136 mmol/L (136-145); TOTAL PROTEIN 8.2 gm/dL (6.4-8.2)
[2020-12-04 19:09] LABS: BILIRUBIN Negative (Negative); BLOOD Negative (Negative); CLARITY Clear (Clear); COLOR Yellow (Yellow); GLUCOSE Negative (Negative); KETONE Negative (Negative); LEUKO ESTERASE Negative (Negative); NITRITE Negative (Negative); UROBILINOGEN 0.2 E.U./dl (0.0-1.0)
[2020-12-04 19:31] LABS: BACTERIA 1+; FINE GRANULAR CAST 0-2; RBC 0-2 rbc/hpf (0-2); WBC 0-2 wbc/hpf (0-5)
== END 2020-12-04 20:23 | disposition home or self-care (01) ==
LOC: ED 16:35
PROVIDERS: Nurse Practitioner Family
DX: R10.9 Unspecified abdominal pain (principal); Z79.899 Other long term (current) drug therapy

== ENCOUNTER 2020-12-18 13:33 | Emergency (ER) | payer OTHER ==
[~2020-12-18] VITALS: Ht 160 cm; Wt 54.4 kg
== END 2020-12-18 14:09 | disposition left against medical advice (07) ==
LOC: ED 13:33
DX: O21.8 Other vomiting complicating pregnancy (principal); R10.11 Right upper quadrant pain; Z3A.01 Less than 8 weeks gestation of pregnancy; Z53.21 Procedure and treatment not carried out due to patient leaving prior to being seen by health care provider

== ENCOUNTER 2021-01-18 21:56 | Emergency (ER) | payer OTHER ==
[~2021-01-18] VITALS: Ht 170.1 cm; Wt 61.2 kg
[2021-01-18 22:03] VITALS: BP 144/104
[2021-01-18 22:42] LABS: BASO % 0.4 % (0.0-1.0); EOS # 0.2 10*3/uL (0.0-0.4); HEMATOCRIT 40.3 % (37.0-47.0); LYMPH # 2.3 10*3/uL (1.3-4.4); MEAN CELL VOLUME 91.4 fl (81.0-99.0); MEAN CORPUSCULAR HGB 29.9 pg (27.0-31.0); MEAN CORPUSCULAR HGB CONC 32.8 g/dl (33.0-37.0); MEAN PLATELET VOLUME 9.6 fl (9.6-12.3); MONO % 11.5 % (3.0-9.0); NEUT # 4.8 10*3/uL (2.3-7.9); PLATELET COUNT AUTOMATED 246 10*3/uL (130-400); RED BLOOD COUNT 4.41 10*6/uL (4.10-5.10); RED CELL DISTRI WIDTH 13.1 % (0-14.5); WHITE BLOOD COUNT 8.3 10*3/uL (4.8-10.8)
[2021-01-18 23:04] LABS: ALBUMIN 3.7 gm/dl (3.1-4.5); ALKALINE PHOSPHATASE 51 U/L (45-117); BUN 15 mg/dl (7-24); CHLORIDE 110 mmol/L (98-107); CREATININE 0.71 mg/dL (0.55-1.02); POTASSIUM 3.4 mmol/L (3.5-5.1); SGOT/AST 29 IU/L (3-35); SGPT/ALT 47 U/L (12-78); SODIUM 139 mmol/L (136-145); TOTAL PROTEIN 7.5 gm/dL (6.4-8.2)
[2021-01-18 23:05] LABS: TROPONIN I < 0.015 ng/ml (<0.045)
[2021-01-18 23:23] LABS: BILIRUBIN Negative (Negative); BLOOD Negative (Negative); CLARITY Clear (Clear); COLOR Yellow (Yellow); GLUCOSE Negative (Negative); KETONE Negative (Negative); LEUKO ESTERASE Negative (Negative); NITRITE Negative (Negative); SPECIFIC GRAVITY 1.015 (1.001-1.030); UROBILINOGEN 0.2 E.U./dl (0.0-1.0)
[2021-01-18 23:31] LABS: URINE AMPHETAMINES > 1000 (1000ng/ml); URINE BARBITURATES < 200 (200ng/ml); URINE BENZODIAZEPINES < 200 (200ng/ml); URINE CANNABINOIDS (THC) < 50 (50ng/ml); URINE COCAINE < 300 (300ng/ml); URINE METHADONE < 300 (300ng/ml); URINE OPIATES < 300 (300ng/ml)
[2021-01-18 23:41] LABS: EPITHELIAL CELLS 16-20
[2021-01-18 23:42] LABS: BACTERIA 1+; URINE PHENCYCLIDINE < 25 (25ng/ml)
[2021-01-19] MEDS ORDERED: CEPHALEXIN500 M1 PO (00:58)
[2021-01-19] MEDS ORDERED: SEPTDS PO (00:58)
== END 2021-01-19 01:04 | disposition home or self-care (01) ==
LOC: ED 21:56
PROVIDERS: Physician Assistant
DX: L08.89 Other specified local infections of the skin and subcutaneous tissue (principal); I10 Essential (primary) hypertension; F17.200 Nicotine dependence, unspecified, uncomplicated; Z79.899 Other long term (current) drug therapy; Z98.890 Other specified postprocedural states

== ENCOUNTER 2021-04-12 11:23 | Inpatient (IN) | payer OTHER ==
[~2021-04-12] VITALS: Ht 170.1 cm; Wt 61.8 kg
[2021-04-12 12:12] LABS: BASO % 0.4 % (0.0-1.0); EOS # 0.1 10*3/uL (0.0-0.4); EOS % 2.1 % (1.0-4.0); HEMATOCRIT 40.8 % (37.0-47.0); LYMPH # 1.3 10*3/uL (1.3-4.4); LYMPH % 22.4 % (27.0-41.0); MEAN CELL VOLUME 92.5 fl (81.0-99.0); MEAN CORPUSCULAR HGB 30.4 pg (27.0-31.0); MEAN CORPUSCULAR HGB CONC 32.8 g/dl (33.0-37.0); MEAN PLATELET VOLUME 9.9 fl (9.6-12.3); MONO # 0.5 10*3/uL (0.1-1.0); MONO % 8.8 % (3.0-9.0); NEUT # 3.8 10*3/uL (2.3-7.9); NEUT % 66.1 % (47.0-73.0); PLATELET COUNT AUTOMATED 216 10*3/uL (130-400); RED BLOOD COUNT 4.41 10*6/uL (4.10-5.10); RED CELL DISTRI WIDTH 13.1 % (0-14.5); WHITE BLOOD COUNT 5.7 10*3/uL (4.8-10.8)
[2021-04-12 12:26] LABS: ALBUMIN 3.2 gm/dl (3.1-4.5); ALKALINE PHOSPHATASE 48 U/L (45-117); BUN 12 mg/dl (7-24); CHLORIDE 109 mmol/L (98-107); POTASSIUM 3.6 mmol/L (3.5-5.1); SGOT/AST 36 IU/L (3-35); SGPT/ALT 49 U/L (12-78); SODIUM 138 mmol/L (136-145); TOTAL PROTEIN 7.1 gm/dL (6.4-8.2)
[2021-04-12 12:27] LABS: ETHYL ALCOHOL < 3.0 mg/dl (<3)
[2021-04-12 12:29] LABS: BETA-HCG, QUANT < 1.0 mIU/mL (1-3)
[2021-04-12 16:23] VITALS: BP 102/74
[2021-04-12] MEDS ORDERED: LEXAPRO10 MG PO (18:19)
[2021-04-12] MEDS ORDERED: LISINOPRIL20 MG PO (18:19)
[2021-04-12 20:00] VITALS: BP 117/74
[2021-04-12 20:10] LABS: BILIRUBIN Negative (Negative); BLOOD Negative (Negative); CLARITY Clear (Clear); COLOR Yellow (Yellow); GLUCOSE Negative (Negative); KETONE Trace (Negative); LEUKO ESTERASE 2+ (Negative); NITRITE Negative (Negative); SPECIFIC GRAVITY 1.015 (1.001-1.030); UROBILINOGEN 0.2 E.U./dl (0.0-1.0)
[2021-04-12 20:20] LABS: URINE AMPHETAMINES > 1000 (1000ng/ml); URINE BARBITURATES < 200 (200ng/ml); URINE BENZODIAZEPINES < 200 (200ng/ml); URINE CANNABINOIDS (THC) < 50 (50ng/ml); URINE COCAINE < 300 (300ng/ml); URINE METHADONE < 300 (300ng/ml); URINE OPIATES > 300 (300ng/ml)
[2021-04-12 20:21] LABS: URINE PHENCYCLIDINE < 25 (25ng/ml)
[2021-04-12 20:44] LABS: BACTERIA TRACE; RBC 0-2 rbc/hpf (0-2)
[2021-04-13] VITALS: BP 123/91
[2021-04-13 01:30] VITALS: BP 120/86
[2021-04-13 08:00] VITALS: BP 124/82
[2021-04-13 12:00] VITALS: BP 123/82
[2021-04-13 16:00] VITALS: BP 137/83
[2021-04-13 20:00] VITALS: BP 133/76
[2021-04-14] VITALS: BP 122/55
[2021-04-14 06:07] LABS: BUN 14 mg/dl (7-24); CHLORIDE 104 mmol/L (98-107); CREATININE 0.54 mg/dL (0.55-1.02); POTASSIUM 4.4 mmol/L (3.5-5.1); SODIUM 138 mmol/L (136-145)
[2021-04-14 06:18] LABS: BASO % 0.5 % (0.0-1.0); EOS # 0.2 10*3/uL (0.0-0.4); EOS % 3.5 % (1.0-4.0); HEMATOCRIT 38.5 % (37.0-47.0); LYMPH # 1.8 10*3/uL (1.3-4.4); LYMPH % 41.1 % (27.0-41.0); MEAN CELL VOLUME 94.1 fl (81.0-99.0); MEAN CORPUSCULAR HGB 30.3 pg (27.0-31.0); MEAN CORPUSCULAR HGB CONC 32.2 g/dl (33.0-37.0); MEAN PLATELET VOLUME 10.4 fl (9.6-12.3); MONO # 0.5 10*3/uL (0.1-1.0); MONO % 12.5 % (3.0-9.0); NEUT # 1.8 10*3/uL (2.3-7.9); NEUT % 42.4 % (47.0-73.0); PLATELET COUNT AUTOMATED 217 10*3/uL (130-400); RED BLOOD COUNT 4.09 10*6/uL (4.10-5.10); RED CELL DISTRI WIDTH 12.8 % (0-14.5); WHITE BLOOD COUNT 4.3 10*3/uL (4.8-10.8)
[2021-04-14 08:00] VITALS: BP 136/84
[2021-04-14 16:00] VITALS: BP 136/87
[2021-04-14] MEDS ORDERED: AMOX-CLAV 500-1 EACH PO (21:49)
[2021-04-14] MEDS ORDERED: AUGMENTIN 500500 M1 PO (21:49)
[2021-04-15] VITALS: BP 146/87
[2021-04-15 08:00] VITALS: BP 134/97
== END 2021-04-15 11:26 | disposition home or self-care (01) | DRG 773 ==
LOC: 4E 11:23
PROVIDERS: Internal Medicine; ADMIT Family Medicine; ATTEND Family Medicine
DX: F11.23 Opioid dependence with withdrawal (principal); F32.9 Major depressive disorder, single episode, unspecified; B19.20 Unspecified viral hepatitis C without hepatic coma; I10 Essential (primary) hypertension; K21.9 Gastro-esophageal reflux disease without esophagitis; F23 Brief psychotic disorder; N39.0 Urinary tract infection, site not specified; F15.20 Other stimulant dependence, uncomplicated; G43.909 Migraine, unspecified, not intractable, without status migrainosus; Z87.820 Personal history of traumatic brain injury; Z98.891 History of uterine scar from previous surgery; Z83.3 Family history of diabetes mellitus; Z82.49 Family history of ischemic heart disease and other diseases of the circulatory system; Z83.42 Family history of familial hypercholesterolemia; Z79.899 Other long term (current) drug therapy; Z87.891 Personal history of nicotine dependence

== ENCOUNTER 2021-08-11 19:33 | Emergency (ER) | payer OTHER ==
[~2021-08-11] VITALS: Ht 170.1 cm; Wt 62.6 kg
[~2021-08-11 19:33] MED LIST changes: +AMOX-CLAV 500-1 EACH PO; +AUGMENTIN 500500 M1 PO; +LEXAPRO10 MG PO; +LISINOPRIL20 MG PO
[2021-08-11 20:05] VITALS: BP 136/90
== END 2021-08-11 20:56 | disposition home or self-care (01) ==
LOC: ED 19:33
DX: S61.211A Laceration without foreign body of left index finger without damage to nail, initial encounter (principal); Z79.899 Other long term (current) drug therapy; F17.220 Nicotine dependence, chewing tobacco, uncomplicated; W26.8XXA Contact with other sharp object(s), not elsewhere classified, initial encounter; Y93.89 Activity, other specified; Y92.89 Other specified places as the place of occurrence of the external cause; Y99.8 Other external cause status

== ENCOUNTER 2021-09-14 17:48 | Emergency (ER) | payer OTHER ==
[~2021-09-14] VITALS: Ht 170.1 cm; Wt 59.0 kg
[2021-09-14 18:06] VITALS: BP 148/87
== END 2021-09-14 19:36 | disposition home or self-care (01) ==
LOC: ED 17:48
DX: S61.215A Laceration without foreign body of left ring finger without damage to nail, initial encounter (principal); S61.217A Laceration without foreign body of left little finger without damage to nail, initial encounter; W26.0XXA Contact with knife, initial encounter; Y93.89 Activity, other specified; Y92.89 Other specified places as the place of occurrence of the external cause; Y99.8 Other external cause status

== ENCOUNTER → 2021-10-06 | Outpatient (CLI) | payer MEDICAID | END | disposition home or self-care (01) | LOC: COVID19 15:22 | PROVIDERS: ATTEND Internal Medicine | DX: Z11.52 Encounter for screening for COVID-19 (principal) ==

== ENCOUNTER 2021-10-25 20:18 | Emergency (ER) | payer SELFPAY ==
[~2021-10-25] VITALS: Ht 172.7 cm; Wt 61.2 kg
[2021-10-26 01:13] LABS: BASO % 0.2 % (0.0-1.0); EOS # 0.1 10*3/uL (0.0-0.4); EOS % 0.8 % (1.0-4.0); HEMATOCRIT 36.8 % (37.0-47.0); LYMPH # 1.9 10*3/uL (1.3-4.4); LYMPH % 31.5 % (27.0-41.0); MEAN CELL VOLUME 91.8 fl (81.0-99.0); MEAN CORPUSCULAR HGB 29.9 pg (27.0-31.0); MEAN CORPUSCULAR HGB CONC 32.6 g/dl (33.0-37.0); MEAN PLATELET VOLUME 10.3 fl (9.6-12.3); MONO # 0.6 10*3/uL (0.1-1.0); MONO % 10.4 % (3.0-9.0); NEUT # 3.5 10*3/uL (2.3-7.9); NEUT % 56.9 % (47.0-73.0); PLATELET COUNT AUTOMATED 217 10*3/uL (130-400); RED BLOOD COUNT 4.01 10*6/uL (4.10-5.10); WHITE BLOOD COUNT 6.1 10*3/uL (4.8-10.8)
[2021-10-26 01:32] LABS: ALKALINE PHOSPHATASE 51 U/L (45-117); BUN 15 mg/dl (7-24); CHLORIDE 109 mmol/L (98-107); CPK 56 U/L (26-192); CREATININE 0.58 mg/dL (0.55-1.02); POTASSIUM 3.4 mmol/L (3.5-5.1); SGOT/AST 11 IU/L (3-35); SGPT/ALT 14 U/L (12-78); SODIUM 139 mmol/L (136-145); TOTAL PROTEIN 6.7 gm/dL (6.4-8.2)
[2021-10-26 02:05] LABS: BILIRUBIN Negative (Negative); BLOOD Negative (Negative); CLARITY Cloudy (Clear); COLOR Yellow (Yellow); GLUCOSE Negative (Negative); KETONE Negative (Negative); LEUKO ESTERASE Negative (Negative); NITRITE Negative (Negative)
[2021-10-26 02:26] LABS: BACTERIA 1+
[2021-10-26] MEDS ORDERED: CEPHALEXIN500 M1 PO (05:18)
[2021-10-26 05:34] VITALS: BP 134/76
== END 2021-10-26 05:25 | disposition home or self-care (01) ==
LOC: ED 20:18
PROVIDERS: Emergency Medicine
DX: S61.432A Puncture wound without foreign body of left hand, initial encounter (principal); Z20.822 Contact with and (suspected) exposure to COVID-19; J06.9 Acute upper respiratory infection, unspecified; R11.10 Vomiting, unspecified; W26.0XXA Contact with knife, initial encounter; Y93.89 Activity, other specified; Y92.89 Other specified places as the place of occurrence of the external cause; Y99.8 Other external cause status

== ENCOUNTER → 2021-11-29 | Outpatient (CLI) | payer OTHER | END | disposition home or self-care (01) | LOC: COVID19 17:02 | PROVIDERS: ATTEND Internal Medicine | DX: Z11.52 Encounter for screening for COVID-19 (principal) ==

== ENCOUNTER 2022-02-05 00:08 | Emergency (ER) | payer OTHER ==
[2022-02-05 00:52] LABS: BASO % 0.1 % (0.0-1.0); EOS # 0.1 10*3/uL (0.0-0.4); EOS % 0.8 % (1.0-4.0); HEMATOCRIT 31.1 % (37.0-47.0); LYMPH # 1.7 10*3/uL (1.3-4.4); LYMPH % 23.5 % (27.0-41.0); MEAN CELL VOLUME 90.1 fl (81.0-99.0); MEAN CORPUSCULAR HGB 30.1 pg (27.0-31.0); MEAN CORPUSCULAR HGB CONC 33.4 g/dl (33.0-37.0); MEAN PLATELET VOLUME 9.9 fl (9.6-12.3); MONO # 0.7 10*3/uL (0.1-1.0); MONO % 8.8 % (3.0-9.0); NEUT # 4.9 10*3/uL (2.3-7.9); NEUT % 66.4 % (47.0-73.0); PLATELET COUNT AUTOMATED 204 10*3/uL (130-400); RED BLOOD COUNT 3.45 10*6/uL (4.10-5.10); RED CELL DISTRI WIDTH 13.2 % (0-14.5); WHITE BLOOD COUNT 7.4 10*3/uL (4.8-10.8)
[2022-02-05 01:00] LABS: BILIRUBIN Negative (Negative); BLOOD Negative (Negative); CLARITY Cloudy (Clear); COLOR Yellow (Yellow); GLUCOSE Negative (Negative); KETONE Trace (Negative); LEUKO ESTERASE Negative (Negative); NITRITE Negative (Negative); SPECIFIC GRAVITY 1.025 (1.001-1.030)
[2022-02-05 01:03] LABS: URINE AMPHETAMINES > 1000 (1000ng/ml); URINE BARBITURATES < 200 (200ng/ml); URINE BENZODIAZEPINES < 200 (200ng/ml); URINE CANNABINOIDS (THC) < 50 (50ng/ml); URINE COCAINE < 300 (300ng/ml); URINE METHADONE < 300 (300ng/ml); URINE OPIATES < 300 (300ng/ml)
[2022-02-05 01:04] LABS: URINE PHENCYCLIDINE < 25 (25ng/ml)
[2022-02-05 01:11] LABS: ALKALINE PHOSPHATASE 51 U/L (45-117); BUN 9 mg/dl (7-24); CHLORIDE 109 mmol/L (98-107); CREATININE 0.56 mg/dL (0.55-1.02); POTASSIUM 3.3 mmol/L (3.5-5.1); SGOT/AST 19 IU/L (3-35); SGPT/ALT 19 U/L (12-78); SODIUM 139 mmol/L (136-145); TOTAL PROTEIN 6.1 gm/dL (6.4-8.2)
[2022-02-05 01:19] LABS: BACTERIA 2+
[2022-02-05 03:55] VITALS: BP 132/94
== END 2022-02-05 04:42 | disposition short-term general hospital (02) ==
LOC: ED 00:08
PROVIDERS: Internal Medicine
DX: O16.2 Unspecified maternal hypertension, second trimester (principal); O26.892 Other specified pregnancy related conditions, second trimester; E44.0 Moderate protein-calorie malnutrition; F15.10 Other stimulant abuse, uncomplicated; E87.6 Hypokalemia; Z3A.25 25 weeks gestation of pregnancy; Z79.899 Other long term (current) drug therapy; Z98.890 Other specified postprocedural states; Z87.891 Personal history of nicotine dependence

== ENCOUNTER 2022-02-13 10:28 | Emergency (ER) | payer OTHER ==
[2022-02-13 10:38] VITALS: BP 137/66
[2022-02-13 11:51] LABS: BASO % 0.1 % (0.0-1.0); EOS # 0.1 10*3/uL (0.0-0.4); EOS % 1.2 % (1.0-4.0); HEMATOCRIT 30.1 % (37.0-47.0); LYMPH # 1.5 10*3/uL (1.3-4.4); LYMPH % 18.3 % (27.0-41.0); MEAN CORPUSCULAR HGB 29.7 pg (27.0-31.0); MEAN CORPUSCULAR HGB CONC 32.2 g/dl (33.0-37.0); MEAN PLATELET VOLUME 10.1 fl (9.6-12.3); MONO # 1.2 10*3/uL (0.1-1.0); MONO % 14.6 % (3.0-9.0); NEUT # 5.4 10*3/uL (2.3-7.9); NEUT % 65.4 % (47.0-73.0); PLATELET COUNT AUTOMATED 179 10*3/uL (130-400); RED BLOOD COUNT 3.27 10*6/uL (4.10-5.10); RED CELL DISTRI WIDTH 13.6 % (0-14.5); WHITE BLOOD COUNT 8.3 10*3/uL (4.8-10.8)
[2022-02-13 12:03] LABS: ACT PARTIAL THROMBO TIME 29.6 SECONDS (20.0-32.1)
[2022-02-13 12:06] LABS: ALKALINE PHOSPHATASE 62 U/L (45-117); BUN 13 mg/dl (7-24); CHLORIDE 108 mmol/L (98-107); CPK 282 U/L (26-192); CREATININE 0.52 mg/dL (0.55-1.02); POTASSIUM 3.7 mmol/L (3.5-5.1); SGOT/AST 43 IU/L (3-35); SGPT/ALT 26 U/L (12-78); SODIUM 139 mmol/L (136-145); TOTAL PROTEIN 5.7 gm/dL (6.4-8.2)
[2022-02-13 12:11] LABS: ETHYL ALCOHOL < 3.0 mg/dl (<3)
[2022-02-13 12:12] LABS: BILIRUBIN Negative (Negative); BLOOD Negative (Negative); CLARITY Cloudy (Clear); COLOR Yellow (Yellow); GLUCOSE Negative (Negative); KETONE Trace (Negative); LEUKO ESTERASE Trace (Negative); NITRITE Negative (Negative)
[2022-02-13 12:22] LABS: URINE AMPHETAMINES > 1000 (1000ng/ml); URINE BARBITURATES < 200 (200ng/ml); URINE BENZODIAZEPINES < 200 (200ng/ml); URINE CANNABINOIDS (THC) < 50 (50ng/ml); URINE COCAINE < 300 (300ng/ml); URINE METHADONE < 300 (300ng/ml); URINE OPIATES < 300 (300ng/ml)
[2022-02-13 12:30] LABS: URINE PHENCYCLIDINE < 25 (25ng/ml)
[2022-02-13 12:33] LABS: BACTERIA 4+; EPITHELIAL CELLS 31-40
[2022-02-13 12:34] LABS: RBC 0-2 rbc/hpf (0-2)
== END 2022-02-13 13:18 | disposition short-term general hospital (02) ==
LOC: ED 10:28
PROVIDERS: Emergency Medicine
DX: O26.892 Other specified pregnancy related conditions, second trimester (principal); M79.89 Other specified soft tissue disorders; M54.9 Dorsalgia, unspecified; Z3A.25 25 weeks gestation of pregnancy; K21.9 Gastro-esophageal reflux disease without esophagitis; F17.220 Nicotine dependence, chewing tobacco, uncomplicated; F15.10 Other stimulant abuse, uncomplicated; Z79.899 Other long term (current) drug therapy; Z98.890 Other specified postprocedural states

== ENCOUNTER → 2022-06-27 | Outpatient (CLI) | payer MEDICAID ==
[2022-06-27 14:32] LABS: BASO % 0.3 % (0.0-1.0); EOS # 0.1 10*3/uL (0.0-0.4); EOS % 1.4 % (1.0-4.0); HEMATOCRIT 38.4 % (37.0-47.0); LYMPH # 2.8 10*3/uL (1.3-4.4); LYMPH % 36.1 % (27.0-41.0); MEAN CELL VOLUME 88.9 fl (81.0-99.0); MEAN CORPUSCULAR HGB 30.6 pg (27.0-31.0); MEAN CORPUSCULAR HGB CONC 34.4 g/dl (33.0-37.0); MEAN PLATELET VOLUME 10.1 fl (9.6-12.3); MONO # 1.1 10*3/uL (0.1-1.0); MONO % 14.4 % (3.0-9.0); NEUT # 3.6 10*3/uL (2.3-7.9); NEUT % 47.4 % (47.0-73.0); PLATELET COUNT AUTOMATED 328 10*3/uL (130-400); RED BLOOD COUNT 4.32 10*6/uL (4.10-5.10); RED CELL DISTRI WIDTH 12.8 % (0-14.5); WHITE BLOOD COUNT 7.7 10*3/uL (4.8-10.8)
== END | disposition home or self-care (01) ==
LOC: RESCLI 13:06
PROVIDERS: Student in an Organized Health Care Education/Training Program; ATTEND Internal Medicine
DX: L03.90 Cellulitis, unspecified (principal); I10 Essential (primary) hypertension; F90.9 Attention-deficit hyperactivity disorder, unspecified type; F32.A Depression, unspecified; F41.9 Anxiety disorder, unspecified; Z79.899 Other long term (current) drug therapy

== ENCOUNTER 2022-08-23 21:01 | Emergency (ER) | payer MEDICAID ==
[~2022-08-23] VITALS: Ht 170.1 cm; Wt 63.5 kg
[2022-08-23 22:17] VITALS: BP 162/95
[2022-08-23 23:08] LABS: BASO % 0.2 % (0.0-1.0); EOS # 0.1 10*3/uL (0.0-0.4); HEMATOCRIT 39.9 % (37.0-47.0); LYMPH # 1.5 10*3/uL (1.3-4.4); LYMPH % 18.4 % (27.0-41.0); MEAN CELL VOLUME 94.8 fl (81.0-99.0); MEAN CORPUSCULAR HGB 31.1 pg (27.0-31.0); MEAN CORPUSCULAR HGB CONC 32.8 g/dl (33.0-37.0); MEAN PLATELET VOLUME 10.1 fl (9.6-12.3); MONO # 0.8 10*3/uL (0.1-1.0); MONO % 9.3 % (3.0-9.0); NEUT # 5.9 10*3/uL (2.3-7.9); NEUT % 70.9 % (47.0-73.0); PLATELET COUNT AUTOMATED 221 10*3/uL (130-400); RED BLOOD COUNT 4.21 10*6/uL (4.10-5.10); RED CELL DISTRI WIDTH 12.9 % (0-14.5); WHITE BLOOD COUNT 8.4 10*3/uL (4.8-10.8)
[2022-08-23 23:25] LABS: ALKALINE PHOSPHATASE 53 U/L (45-117); BUN 10 mg/dl (7-24); CHLORIDE 109 mmol/L (98-107); POTASSIUM 3.4 mmol/L (3.5-5.1); SGOT/AST 44 IU/L (3-35); SGPT/ALT 69 U/L (12-78); SODIUM 138 mmol/L (136-145); TOTAL PROTEIN 7.3 gm/dL (6.4-8.2)
[2022-08-23] MEDS ORDERED: CEPHALEXIN500 M1 PO (23:40)
[2022-08-29 14:07] LABS: ORGANISM ID Final report (.)
== END 2022-08-23 23:45 | disposition home or self-care (01) ==
LOC: ED 21:01
PROVIDERS: Internal Medicine
DX: L98.9 Disorder of the skin and subcutaneous tissue, unspecified (principal); E87.6 Hypokalemia; Z79.899 Other long term (current) drug therapy; Z98.890 Other specified postprocedural states

== ENCOUNTER 2022-08-31 16:57 | Inpatient (IN) | payer MEDICAID ==
[~2022-08-31] VITALS: Ht 172.7 cm; Wt 66.7 kg
[2022-08-31 17:10] VITALS: BP 165/102
[2022-08-31 17:49] LABS: BASO % 0.2 % (0.0-1.0); EOS # 0.1 10*3/uL (0.0-0.4); EOS % 1.5 % (1.0-4.0); HEMATOCRIT 41.5 % (37.0-47.0); LYMPH # 1.9 10*3/uL (1.3-4.4); LYMPH % 35.8 % (27.0-41.0); MEAN CELL VOLUME 95.2 fl (81.0-99.0); MEAN CORPUSCULAR HGB CONC 32.5 g/dl (33.0-37.0); MONO # 0.6 10*3/uL (0.1-1.0); MONO % 10.5 % (3.0-9.0); NEUT # 2.7 10*3/uL (2.3-7.9); NEUT % 51.8 % (47.0-73.0); PLATELET COUNT AUTOMATED 247 10*3/uL (130-400); RED BLOOD COUNT 4.36 10*6/uL (4.10-5.10); RED CELL DISTRI WIDTH 12.3 % (0-14.5); WHITE BLOOD COUNT 5.3 10*3/uL (4.8-10.8)
[2022-08-31 18:00] LABS: ACT PARTIAL THROMBO TIME 26.9 SECONDS (20.0-32.1)
[2022-08-31 18:10] LABS: ALKALINE PHOSPHATASE 53 U/L (45-117); BUN 15 mg/dl (7-24); CHLORIDE 108 mmol/L (98-107); CREATININE 0.69 mg/dL (0.55-1.02); LIPASE 55 U/L (73-393); POTASSIUM 3.3 mmol/L (3.5-5.1); SGOT/AST 42 IU/L (3-35); SGPT/ALT 86 U/L (12-78); SODIUM 141 mmol/L (136-145); TOTAL PROTEIN 7.2 gm/dL (6.4-8.2)
[2022-08-31 20:45] LABS: BILIRUBIN Negative (Negative); BLOOD 2+ (Negative); CLARITY Cloudy (Clear); COLOR Yellow (Yellow); GLUCOSE Negative (Negative); KETONE Negative (Negative); LEUKO ESTERASE Negative (Negative); NITRITE Negative (Negative); PH 7.5 (4.5-8.0); SPECIFIC GRAVITY 1.015 (1.001-1.030); UROBILINOGEN 0.2 E.U./dl (0.0-1.0)
[2022-08-31 20:49] VITALS: BP 187/94
[2022-08-31 20:50] VITALS: BP 144/96
[2022-08-31 21:03] LABS: BACTERIA 1+; EPITHELIAL CELLS 51-100; WBC 0-2 wbc/hpf (0-5)
[2022-08-31] MEDS ORDERED: LEXAPRO10 MG PO (21:07)
[2022-08-31] MEDS ORDERED: ZESTORETIC 20-1 EACH PO (21:07)
[2022-09-01] VITALS: BP 131/89
[2022-09-01 03:47] LABS: BASO % 0.4 % (0.0-1.0); EOS # 0.1 10*3/uL (0.0-0.4); EOS % 2.2 % (1.0-4.0); HEMATOCRIT 39.6 % (37.0-47.0); LYMPH # 2.1 10*3/uL (1.3-4.4); LYMPH % 47.5 % (27.0-41.0); MEAN CELL VOLUME 96.4 fl (81.0-99.0); MEAN CORPUSCULAR HGB 31.1 pg (27.0-31.0); MEAN CORPUSCULAR HGB CONC 32.3 g/dl (33.0-37.0); MEAN PLATELET VOLUME 10.1 fl (9.6-12.3); MONO # 0.5 10*3/uL (0.1-1.0); MONO % 11.2 % (3.0-9.0); NEUT # 1.7 10*3/uL (2.3-7.9); NEUT % 38.5 % (47.0-73.0); PLATELET COUNT AUTOMATED 231 10*3/uL (130-400); RED BLOOD COUNT 4.11 10*6/uL (4.10-5.10); RED CELL DISTRI WIDTH 12.6 % (0-14.5); WHITE BLOOD COUNT 4.5 10*3/uL (4.8-10.8)
[2022-09-01 03:55] LABS: URINE AMPHETAMINES > 1000 (1000ng/ml); URINE BARBITURATES < 200 (200ng/ml); URINE BENZODIAZEPINES < 200 (200ng/ml); URINE CANNABINOIDS (THC) < 50 (50ng/ml); URINE COCAINE < 300 (300ng/ml); URINE METHADONE < 300 (300ng/ml); URINE OPIATES > 300 (300ng/ml)
[2022-09-01 03:57] LABS: ACT PARTIAL THROMBO TIME 27.1 SECONDS (20.0-32.1)
[2022-09-01 04:06] LABS: URINE PHENCYCLIDINE < 25 (25ng/ml)
[2022-09-01 04:22] LABS: BUN 10 mg/dl (7-24); CHLORIDE 112 mmol/L (98-107); SGOT/AST 37 IU/L (3-35); SGPT/ALT 71 U/L (12-78); SODIUM 142 mmol/L (136-145)
[2022-09-01 04:30] LABS: ALKALINE PHOSPHATASE 46 U/L (45-117); CHOLESTEROL 139 mg/dL (<200); CREATININE 0.68 mg/dL (0.55-1.02); FREE T4 0.84 ng/dl (0.76-1.46); LDL CHOLESTEROL 76 mg/dL (9-159); TOTAL PROTEIN 6.4 gm/dL (6.4-8.2); TRIGLYCERIDES 90 mg/dl (<150)
[2022-09-01 04:31] LABS: POTASSIUM 4.3 mmol/L (3.5-5.1)
[2022-09-01 08:00] VITALS: BP 120/73
[2022-09-01 11:55] VITALS: BP 121/71
[2022-09-01 16:00] VITALS: BP 122/60
[2022-09-01 20:00] VITALS: BP 134/78
[2022-09-02] VITALS (8 sets, daily range): BP systolic 100–135; BP diastolic 53–89
[2022-09-02 05:33] LABS: BUN 12 mg/dl (7-24); CHLORIDE 109 mmol/L (98-107); CREATININE 0.62 mg/dL (0.55-1.02); POTASSIUM 4.1 mmol/L (3.5-5.1); SODIUM 141 mmol/L (136-145)
[2022-09-02 06:13] LABS: BASO % 0.2 % (0.0-1.0); EOS # 0.1 10*3/uL (0.0-0.4); EOS % 2.9 % (1.0-4.0); HEMATOCRIT 40.9 % (37.0-47.0); LYMPH # 1.9 10*3/uL (1.3-4.4); LYMPH % 44.9 % (27.0-41.0); MEAN CELL VOLUME 97.4 fl (81.0-99.0); MEAN CORPUSCULAR HGB 31.4 pg (27.0-31.0); MEAN CORPUSCULAR HGB CONC 32.3 g/dl (33.0-37.0); MEAN PLATELET VOLUME 10.5 fl (9.6-12.3); MONO # 0.6 10*3/uL (0.1-1.0); MONO % 13.5 % (3.0-9.0); NEUT # 1.6 10*3/uL (2.3-7.9); NEUT % 38.3 % (47.0-73.0); PLATELET COUNT AUTOMATED 237 10*3/uL (130-400); RED CELL DISTRI WIDTH 12.4 % (0-14.5); WHITE BLOOD COUNT 4.2 10*3/uL (4.8-10.8)
[2022-09-03] VITALS: BP 110/50
[2022-09-03 04:14] LABS: BASO % 0.5 % (0.0-1.0); EOS # 0.1 10*3/uL (0.0-0.4); EOS % 3.4 % (1.0-4.0); HEMATOCRIT 42.9 % (37.0-47.0); LYMPH # 1.7 10*3/uL (1.3-4.4); LYMPH % 40.9 % (27.0-41.0); MEAN CELL VOLUME 97.7 fl (81.0-99.0); MEAN CORPUSCULAR HGB 31.7 pg (27.0-31.0); MEAN CORPUSCULAR HGB CONC 32.4 g/dl (33.0-37.0); MEAN PLATELET VOLUME 9.8 fl (9.6-12.3); MONO # 0.6 10*3/uL (0.1-1.0); MONO % 14.2 % (3.0-9.0); NEUT # 1.7 10*3/uL (2.3-7.9); NEUT % 40.8 % (47.0-73.0); PLATELET COUNT AUTOMATED 232 10*3/uL (130-400); RED BLOOD COUNT 4.39 10*6/uL (4.10-5.10); RED CELL DISTRI WIDTH 12.3 % (0-14.5); WHITE BLOOD COUNT 4.2 10*3/uL (4.8-10.8)
[2022-09-03 04:32] LABS: CHLORIDE 107 mmol/L (98-107); CREATININE 0.65 mg/dL (0.55-1.02); POTASSIUM 4.2 mmol/L (3.5-5.1); SODIUM 139 mmol/L (136-145); TOTAL PROTEIN 6.5 gm/dL (6.4-8.2)
[2022-09-03 04:45] LABS: ALKALINE PHOSPHATASE 48 U/L (45-117); BUN 16 mg/dl (7-24); SGOT/AST 46 IU/L (3-35); SGPT/ALT 71 U/L (12-78)
[2022-09-03 08:00] VITALS: BP 172/59
[2022-09-03 12:00] VITALS: BP 135/80
== END 2022-09-03 12:10 | disposition home or self-care (01) | DRG 603 ==
LOC: ED 16:57 → EDHOLD 18:34 → ICCU 18:34
PROVIDERS: Emergency Medicine; Internal Medicine; Student in an Organized Health Care Education/Training Program; ADMIT Internal Medicine; ATTEND Internal Medicine
PROC: B24BZZ4 Ultrasonography of Heart with Aorta, Transesophageal (ICD-10-PCS; principal; 2022-09-02)
DX: L03.221 Cellulitis of neck (principal); R78.81 Bacteremia; F32.0 Major depressive disorder, single episode, mild; E87.6 Hypokalemia; I10 Essential (primary) hypertension; F32.9 Major depressive disorder, single episode, unspecified; K21.9 Gastro-esophageal reflux disease without esophagitis; B37.32 Chronic candidiasis of vulva and vagina; N76.0 Acute vaginitis; L98.9 Disorder of the skin and subcutaneous tissue, unspecified; Z98.891 History of uterine scar from previous surgery; Z83.3 Family history of diabetes mellitus; Z82.49 Family history of ischemic heart disease and other diseases of the circulatory system; Z86.19 Personal history of other infectious and parasitic diseases; Z72.0 Tobacco use; Z71.6 Tobacco abuse counseling

== ENCOUNTER 2023-12-05 00:52 | Emergency (ER) | payer MEDICAID ==
[~2023-12-05] VITALS: Ht 172.7 cm; Wt 65.8 kg
[2023-12-05 01:03] VITALS: BP 130/78
[2023-12-05] MEDS ORDERED: METOPROLOL SUCC25 M2 PO (01:03)
[2023-12-05 01:37] LABS: BASO % 0.4 % (0.0-1.0); EOS # 0.1 10*3/uL (0.0-0.4); EOS % 1.9 % (1.0-4.0); HEMATOCRIT 42.5 % (37.0-47.0); LYMPH # 2.8 10*3/uL (1.3-4.4); LYMPH % 41.5 % (27.0-41.0); MEAN CELL VOLUME 92.6 fl (81.0-99.0); MEAN CORPUSCULAR HGB 29.4 pg (27.0-31.0); MEAN CORPUSCULAR HGB CONC 31.8 g/dl (33.0-37.0); MEAN PLATELET VOLUME 9.6 fl (9.6-12.3); MONO # 0.9 10*3/uL (0.1-1.0); MONO % 13.1 % (3.0-9.0); NEUT # 2.9 10*3/uL (2.3-7.9); NEUT % 42.8 % (47.0-73.0); PLATELET COUNT AUTOMATED 281 10*3/uL (130-400); RED BLOOD COUNT 4.59 10*6/uL (4.10-5.10); RED CELL DISTRI WIDTH 12.7 % (0-14.5); WHITE BLOOD COUNT 6.8 10*3/uL (4.8-10.8)
[2023-12-05 01:39] LABS: BILIRUBIN Negative (Negative); BLOOD Negative (Negative); CLARITY Clear (Clear); COLOR Yellow (Yellow); GLUCOSE Negative (Negative); KETONE Negative (Negative); LEUKO ESTERASE Negative (Negative); NITRITE Negative (Negative); SPECIFIC GRAVITY 1.025 (1.001-1.030)
[2023-12-05 01:46] LABS: URINE AMPHETAMINES Negative (1000ng/ml); URINE BARBITURATES Negative (200ng/ml); URINE BENZODIAZEPINES Negative (200ng/ml); URINE CANNABINOIDS (THC) Negative (50ng/ml); URINE COCAINE Negative (300ng/ml); URINE METHADONE Negative (300ng/ml); URINE OPIATES Negative (300ng/ml); URINE PHENCYCLIDINE Negative (25ng/ml)
[2023-12-05 01:48] LABS: ACT PARTIAL THROMBO TIME 26.8 SECONDS (20.0-32.1)
[2023-12-05 01:51] LABS: BACTERIA 2+; EPITHELIAL CELLS 21-30
[2023-12-05 01:55] LABS: ALKALINE PHOSPHATASE 63 U/L (46-116); BUN 19 mg/dl (9-23); CHLORIDE 107 mmol/L (98-107); ETHYL ALCOHOL < 3.0 mg/dl (<3); LIPASE 23 U/L (12-53); POTASSIUM 4.3 mmol/L (3.4-5.1); SGPT/ALT 70 U/L (5-49)
== END 2023-12-05 03:04 | disposition home or self-care (01) ==
LOC: ED 00:52
PROVIDERS: Internal Medicine
DX: H92.02 Otalgia, left ear (principal); G43.909 Migraine, unspecified, not intractable, without status migrainosus; I10 Essential (primary) hypertension; F41.9 Anxiety disorder, unspecified; R10.2 Pelvic and perineal pain; Z98.890 Other specified postprocedural states; F17.220 Nicotine dependence, chewing tobacco, uncomplicated; F11.10 Opioid abuse, uncomplicated; Z79.899 Other long term (current) drug therapy

== ENCOUNTER 2024-02-01 16:05 | Emergency (ER) | payer MEDICAID ==
[~2024-02-01] VITALS: Ht 172.7 cm; Wt 72.6 kg
[~2024-02-01 16:05] MED LIST changes: +METOPROLOL SUCC25 M2 PO
[2024-02-01 16:10] VITALS: BP 123/79
[2024-02-01] MEDS ORDERED: Dexamethasone Sodium Phospha 20 MG/5 ML VIAL IM ONE (16:20)
[2024-02-01] MEDS ORDERED: diphenhydrAMINE hydrochloride 50 MG/ML VIAL IM ONE (16:20)
[2024-02-01] MEDS ORDERED: PREDNISONE20 M1 PO (16:56)
[2024-02-01] MEDS ORDERED: SEPTDS PO (16:56)
[2024-02-01] MEDS ORDERED: KENALOG 0.025%15 GM T (16:56)
== END 2024-02-01 16:58 | disposition home or self-care (01) ==
LOC: ED 16:05
DX: L25.0 Unspecified contact dermatitis due to cosmetics (principal); G43.909 Migraine, unspecified, not intractable, without status migrainosus; I10 Essential (primary) hypertension; F41.9 Anxiety disorder, unspecified; F17.220 Nicotine dependence, chewing tobacco, uncomplicated; F11.10 Opioid abuse, uncomplicated; Z98.890 Other specified postprocedural states

== ENCOUNTER 2024-04-13 16:13 | Emergency (ER) | payer MEDICAID ==
[~2024-04-13] VITALS: Ht 172.7 cm; Wt 68.0 kg
[~2024-04-13 16:13] MED LIST changes: +KENALOG 0.025%15 GM T; +PREDNISONE20 M1 PO
[2024-04-13 16:46] VITALS: BP 176/99
[2024-04-13 18:35] LABS: BASO % 0.3 % (0.0-1.0); EOS # 0.1 10*3/uL (0.0-0.4); EOS % 0.5 % (1.0-4.0); HEMATOCRIT 39.4 % (37.0-47.0); LYMPH # 2.1 10*3/uL (1.3-4.4); LYMPH % 22.3 % (27.0-41.0); MEAN CELL VOLUME 92.9 fl (81.0-99.0); MEAN CORPUSCULAR HGB 30.7 pg (27.0-31.0); MEAN PLATELET VOLUME 10.4 fl (9.6-12.3); MONO # 1.1 10*3/uL (0.1-1.0); MONO % 11.7 % (3.0-9.0); NEUT # 6.1 10*3/uL (2.3-7.9); NEUT % 65.1 % (47.0-73.0); PLATELET COUNT AUTOMATED 190 10*3/uL (130-400); RED BLOOD COUNT 4.24 10*6/uL (4.10-5.10); RED CELL DISTRI WIDTH 12.9 % (0-14.5); WHITE BLOOD COUNT 9.4 10*3/uL (4.8-10.8)
[2024-04-13 18:56] LABS: BUN 13 mg/dl (9-23); CHLORIDE 105 mmol/L (98-107); POTASSIUM 3.7 mmol/L (3.4-5.1)
[2024-04-13] MEDS ORDERED: BACITRACIN28.4 GM T (19:06)
[2024-04-13] MEDS ORDERED: ONDANSETRON4 MG SL (19:06)
== END 2024-04-13 19:38 | disposition home or self-care (01) ==
LOC: ED 16:13
PROVIDERS: Physician Assistant Medical
DX: T20.06XA Burn of unspecified degree of forehead and cheek, initial encounter (principal); T20.07XA Burn of unspecified degree of neck, initial encounter; L73.9 Follicular disorder, unspecified; F17.220 Nicotine dependence, chewing tobacco, uncomplicated; Z79.899 Other long term (current) drug therapy; Z98.890 Other specified postprocedural states; Z96.22 Myringotomy tube(s) status; X08.8XXA Exposure to other specified smoke, fire and flames, initial encounter; Y93.89 Activity, other specified; Y92.89 Other specified places as the place of occurrence of the external cause; Y99.8 Other external cause status

== ENCOUNTER 2024-04-14 04:31 | Emergency (ER) | payer MEDICAID ==
[~2024-04-14 04:31] MED LIST changes: +BACITRACIN28.4 GM T; +ONDANSETRON4 MG SL
[2024-04-14 04:35] VITALS: BP 177/111
== END 2024-04-14 05:50 | disposition home or self-care (01) ==
LOC: ED 04:31
DX: T20.00XA Burn of unspecified degree of head, face, and neck, unspecified site, initial encounter (principal); T31.0 Burns involving less than 10% of body surface; I10 Essential (primary) hypertension; G43.909 Migraine, unspecified, not intractable, without status migrainosus; F17.220 Nicotine dependence, chewing tobacco, uncomplicated; F15.10 Other stimulant abuse, uncomplicated; F11.10 Opioid abuse, uncomplicated; Z98.890 Other specified postprocedural states; X08.8XXA Exposure to other specified smoke, fire and flames, initial encounter; Y93.89 Activity, other specified; Y92.89 Other specified places as the place of occurrence of the external cause; Y99.8 Other external cause status

== ENCOUNTER 2024-07-27 20:43 | Emergency (ER) | payer MEDICAID ==
[2024-07-27] MEDS ORDERED: Ondansetron Hydrochloride 4 MG TAB PO ONE (21:05)
[2024-07-27 21:26] LABS: BASO % 0.2 % (0.0-1.0); EOS % 0.2 % (1.0-4.0); HEMATOCRIT 43.2 % (37.0-47.0); LYMPH # 1.9 10*3/uL (1.3-4.4); LYMPH % 23.2 % (27.0-41.0); MEAN CELL VOLUME 91.1 fl (81.0-99.0); MEAN CORPUSCULAR HGB 29.7 pg (27.0-31.0); MEAN CORPUSCULAR HGB CONC 32.6 g/dl (33.0-37.0); MONO % 12.3 % (3.0-9.0); NEUT # 5.2 10*3/uL (2.3-7.9); NEUT % 63.9 % (47.0-73.0); PLATELET COUNT AUTOMATED 249 10*3/uL (130-400); RED BLOOD COUNT 4.74 10*6/uL (4.10-5.10); RED CELL DISTRI WIDTH 12.7 % (0-14.5); WHITE BLOOD COUNT 8.2 10*3/uL (4.8-10.8)
[2024-07-27 21:43] LABS: BUN 13 mg/dl (9-23); CHLORIDE 107 mmol/L (98-107); POTASSIUM 3.3 mmol/L (3.4-5.1)
[2024-07-27] MEDS ORDERED: AMOX-CLAV 875-1 EACH PO (21:50)
[2024-07-27 21:51] VITALS: BP 132/100
[2024-07-27] MEDS ORDERED: Amoxicillin/Clavulanate Pota 500 MG TAB PO ONE (21:55)
== END 2024-07-27 21:57 | disposition home or self-care (01) ==
LOC: ED 20:43
PROVIDERS: Physician Assistant Medical
DX: K08.89 Other specified disorders of teeth and supporting structures (principal); G43.909 Migraine, unspecified, not intractable, without status migrainosus; I10 Essential (primary) hypertension; F41.9 Anxiety disorder, unspecified; F17.220 Nicotine dependence, chewing tobacco, uncomplicated; F11.10 Opioid abuse, uncomplicated; Z98.890 Other specified postprocedural states

== ENCOUNTER → 2024-08-08 | Outpatient (CLI) | payer MEDICAID ==
[~2024-08-08] MED LIST changes: +AMOX-CLAV 875-1 EACH PO
[2024-08-08 15:11] LABS: BASO % 0.4 % (0.0-1.0); EOS # 0.1 10*3/uL (0.0-0.4); EOS % 0.9 % (1.0-4.0); HEMATOCRIT 42.4 % (37.0-47.0); LYMPH # 2.1 10*3/uL (1.3-4.4); LYMPH % 36.3 % (27.0-41.0); MEAN CELL VOLUME 89.6 fl (81.0-99.0); MEAN CORPUSCULAR HGB 29.4 pg (27.0-31.0); MEAN CORPUSCULAR HGB CONC 32.8 g/dl (33.0-37.0); MEAN PLATELET VOLUME 10.3 fl (9.6-12.3); MONO # 0.6 10*3/uL (0.1-1.0); MONO % 10.9 % (3.0-9.0); NEUT # 2.9 10*3/uL (2.3-7.9); NEUT % 51.3 % (47.0-73.0); PLATELET COUNT AUTOMATED 281 10*3/uL (130-400); RED BLOOD COUNT 4.73 10*6/uL (4.10-5.10); RED CELL DISTRI WIDTH 12.7 % (0-14.5); WHITE BLOOD COUNT 5.7 10*3/uL (4.8-10.8)
[2024-08-08 15:36] LABS: ALKALINE PHOSPHATASE 65 U/L (46-116); BUN 10 mg/dl (9-23); CHLORIDE 106 mmol/L (98-107); POTASSIUM 3.4 mmol/L (3.4-5.1); SGPT/ALT 27 U/L (5-49); TOTAL PROTEIN 7.5 gm/dL (6.0-8.0)
[2024-08-10 01:06] LABS: HCV LOG10 5.041 (.); HEPATITIS C QNT 110000 IU/mL (.)
[2024-08-10 04:06] LABS: ALPHA 2-MACAROGLOBULINS 198 mg/dL (110-276); ALT (SGPT) P5P 30 IU/L (0-40); APOLIPOPROEIN A-1 115 mg/dL (116-209); BILIRUBIN, TOTAL 0.4 mg/dL (0.0-1.2); CHOLESTEROL, TOTAL 195 mg/dL (100-199); GGT 11 IU/L (0-60); GLUCOSE, SERUM 97 mg/dL (70-99); HAPTOGLOBIN 50 mg/dL (33-278); TRIGLYCERIDES 64 mg/dL (0-149)
== END | disposition home or self-care (01) ==
LOC: LAB 14:38
DX: B19.20 Unspecified viral hepatitis C without hepatic coma (principal)

== ENCOUNTER → 2024-10-14 | Outpatient (CLI) | payer MEDICAID | END | disposition home or self-care (01) | LOC: US 09-23 10:00 | PROVIDERS: ATTEND Family Medicine | DX: B18.2 Chronic viral hepatitis C (principal) ==

== ENCOUNTER 2025-03-23 22:56 | Emergency (ER) | payer MEDICAID ==
[~2025-03-23] VITALS: Ht 172.7 cm; Wt 65.8 kg
[2025-03-23 23:13] VITALS: BP 149/100
[2025-03-24 00:29] LABS: BASO % 0.4 % (0.0-1.0); EOS # 0.2 10*3/uL (0.0-0.4); EOS % 2.4 % (1.0-4.0); HEMATOCRIT 38.4 % (37.0-47.0); MEAN CELL VOLUME 91.4 fl (81.0-99.0); MEAN CORPUSCULAR HGB 29.8 pg (27.0-31.0); MEAN CORPUSCULAR HGB CONC 32.6 g/dl (33.0-37.0); MEAN PLATELET VOLUME 9.9 fl (9.6-12.3); MONO # 0.8 10*3/uL (0.1-1.0); MONO % 10.5 % (3.0-9.0); NEUT # 3.7 10*3/uL (2.3-7.9); NEUT % 48.7 % (47.0-73.0); PLATELET COUNT AUTOMATED 246 10*3/uL (130-400); RED CELL DISTRI WIDTH 12.8 % (0-14.5); WHITE BLOOD COUNT 7.5 10*3/uL (4.8-10.8)
[2025-03-24 01:07] LABS: ALKALINE PHOSPHATASE 56 U/L (46-116); BUN 18 mg/dl (9-23); CHLORIDE 106 mmol/L (98-107); POTASSIUM 3.7 mmol/L (3.4-5.1); SGPT/ALT 8 U/L (5-49); TOTAL PROTEIN 6.4 gm/dL (6.0-8.0)
[2025-03-24 02:38] LABS: BILIRUBIN Negative (Negative); BLOOD Negative (Negative); CLARITY Cloudy (Clear); COLOR Yellow (Yellow); GLUCOSE Negative (Negative); KETONE Trace (Negative); LEUKO ESTERASE Negative (Negative); NITRITE Negative (Negative); SPECIFIC GRAVITY 1.025 (1.001-1.030)
[2025-03-24 02:44] LABS: BACTERIA 1+; CALCIUM OXALATE CRYSTALS Trace; MUCOUS TRACE; RBC 0-2 rbc/hpf (0-2); WBC 0-2 wbc/hpf (0-5)
== END 2025-03-24 03:46 | disposition home or self-care (01) ==
LOC: ED 22:56
PROVIDERS: Emergency Medicine
DX: K59.00 Constipation, unspecified (principal); R73.9 Hyperglycemia, unspecified; F32.A Depression, unspecified; I10 Essential (primary) hypertension; F17.220 Nicotine dependence, chewing tobacco, uncomplicated; F17.290 Nicotine dependence, other tobacco product, uncomplicated; Z79.899 Other long term (current) drug therapy; Z98.890 Other specified postprocedural states; Z96.22 Myringotomy tube(s) status

== ENCOUNTER 2025-04-22 19:03 | Emergency (ER) | payer MEDICAID ==
[~2025-04-22] VITALS: Ht 172.7 cm; Wt 66.7 kg
[2025-04-22 19:10] VITALS: BP 156/102
[2025-04-22 19:40] LABS: BASO % 0.4 % (0.0-1.0); EOS # 0.1 10*3/uL (0.0-0.4); EOS % 1.6 % (1.0-4.0); HEMATOCRIT 38.8 % (37.0-47.0); MEAN CELL VOLUME 89.2 fl (81.0-99.0); MEAN CORPUSCULAR HGB 30.3 pg (27.0-31.0); MEAN PLATELET VOLUME 9.7 fl (9.6-12.3); MONO # 0.7 10*3/uL (0.1-1.0); MONO % 10.6 % (3.0-9.0); NEUT # 3.1 10*3/uL (2.3-7.9); NEUT % 45.8 % (47.0-73.0); PLATELET COUNT AUTOMATED 315 10*3/uL (130-400); RED BLOOD COUNT 4.35 10*6/uL (4.10-5.10); RED CELL DISTRI WIDTH 12.6 % (0-14.5); WHITE BLOOD COUNT 6.7 10*3/uL (4.8-10.8)
[2025-04-22 20:01] LABS: ALKALINE PHOSPHATASE 68 U/L (46-116); BUN 20 mg/dl (9-23); CHLORIDE 105 mmol/L (98-107); LIPASE 24 U/L (12-53); POTASSIUM 3.6 mmol/L (3.4-5.1); TOTAL PROTEIN 7.2 gm/dL (6.0-8.0)
[2025-04-22 20:07] LABS: SGPT/ALT < 7 U/L (5-49)
[2025-04-22] MEDS ORDERED: SODIUM CHLORIDE 0.9% 1,000 ML IV ONE (20:15)
[2025-04-22] MEDS ORDERED: LORazepam 2 MG/ML VIAL IV ONE (20:15)
== END 2025-04-22 22:32 | disposition home or self-care (01) ==
LOC: ED 19:03
PROVIDERS: Internal Medicine
DX: R14.0 Abdominal distension (gaseous) (principal); R21 Rash and other nonspecific skin eruption; R53.83 Other fatigue; T50.905A Adverse effect of unspecified drugs, medicaments and biological substances, initial encounter; F41.9 Anxiety disorder, unspecified; I10 Essential (primary) hypertension; G43.909 Migraine, unspecified, not intractable, without status migrainosus; F17.200 Nicotine dependence, unspecified, uncomplicated; Z79.899 Other long term (current) drug therapy; Z98.890 Other specified postprocedural states; Y92.89 Other specified places as the place of occurrence of the external cause

== ENCOUNTER 2025-07-04 01:16 | Emergency (ER) | payer MEDICAID ==
[~2025-07-04] VITALS: Ht 172.7 cm; Wt 63.5 kg
[2025-07-04 01:25] VITALS: BP 156/85
== END 2025-07-04 02:51 | disposition home or self-care (01) ==
LOC: ED 01:16
DX: L02.411 Cutaneous abscess of right axilla (principal); L73.2 Hidradenitis suppurativa; I10 Essential (primary) hypertension; F41.9 Anxiety disorder, unspecified; G43.909 Migraine, unspecified, not intractable, without status migrainosus; F17.290 Nicotine dependence, other tobacco product, uncomplicated; Z98.890 Other specified postprocedural states